=== PATIENT | female | born 1985 | race African-American/Black ===

== ENCOUNTER 2017-02-15 01:12 | Inpatient (IN) | payer OTHER ==
[~2017-02-15] VITALS: Ht 167.6 cm; Wt 122.5 kg
[~2017-02-15 01:12] MED LIST: ALBUTEROL0.09 MG/A1 INH; MOTRIN 600 MG600 MG PO; PRENA1 TRUE CO1 EACH PO; REGLAN10 MG PO; TESSALON PERLE100 MG PO; VICODIN5-300 PO; ZITHROMAX Z-PA250 M1 PO; ZOFRAN 4 MG TABL4 MG PO; ZOFRAN ODT4 MG SL
[2017-02-15 02:08] LABS: ABSOLUTE BASOPHIL COUNT 0 /CUMM (0.0-0.2); ABSOLUTE EOSINOPHIL COUNT 0 /CUMM (0.0-0.7); ABSOLUTE GRANULOCYTE CT 16.3 /CUMM (1.4-6.5); ABSOLUTE MONOCYTE COUNT 0.3 /CUMM (0.10-0.60); BASOPHIL % 0.1 % (0.0-2.0); EOSINOPHIL % 0 % (0-5); GRANULOCYTE % 92.9 % (42.2-75.2); HEMATOCRIT 37.8 % (37-47); MEAN CORPUSCULAR HGB CONC 32.9 G/DL (33.0-37.0); MEAN CORPUSCULAR VOLUME 82.1 FL (81.0-99.0); MEAN PLATELET VOLUME 9.1 FL (7.4-10.4); PLATELET COUNT 198 /CUMM (130-400); RBC DISTRIBUTION WIDTH 14.9 % (11.5-14.5); WHITE BLOOD CELL COUNT 17.6 /CUMM (4.8-10.8)
--- NOTE | 2017-02-15 11:00 | PN- Obstetrical ---
Subjective Subjective: HAD A DECLERATION Objective Last 24 Hrs of Vital Signs/I&O Intake & Output 02/15 1600 02/15 0800 02/15 0000 Intake Total Output Total Balance Patient 270 lb Weight Physical Exam: Vital signs stable Abdomen estimated weight 3700 g Obstetric Exam Dilation (cm): 5 Effacement (%): 90 Station: 0 Membranes: AROM Fluid: uPON ATTEMPT TO ARTIFICIALLY RUPTURE MEMBRANES NO MEMBRANES WERE NOTED MECONIUM WAS NOTED ON THE iupc PROBE Multiple Gestation? No Contractions: Every 4-5 minutes Assessment/Plan Assessment/Plan Assessment term DM cannabis use Plan AROM IUPCIFM
--- NOTE | 2017-02-15 12:12 | Operative Report ---
Operative/Inv Procedure Report Surgery Date: 02/15/17 Name of Procedure: Primary low flap transverse section via Pfannenstiel skin incision Pre-Operative Diagnosis: Term gestational diabetes and nonreassuring heart tracing bradycardia Post-Operative Diagnosis: Same meconium cord around neck 1 primary low flap transverse section via Pfannenstiel skin incision Estimated Blood Loss: 500 Surgeon/Bacteriology Research Assistant: Torie Randle M.D AND Karen Thomson Anesthesia: general endotracheal tube Operative/Procedure Note Note: Seasonal patient was taken to the operating room placed in supine position on after placement of Hernandez and there was a lack of heart patient was placed in dorsal lithotomy position the vagina was prepped of some fashion the abdomen was prepped under sterile fashion at this point the patient. After adequate induction general anesthesia via endotracheal tube kaleidoscope. The skin was cut to fit from symphysis pubis carried down to rectus fascia which was cut in curvilinear fashion in either direction using a knife the peritoneal cavity was entered bluntly at this point the level of L4 was placed in Khan incision the visceral peritoneum of the uterus was dissected bluntly after was nicked with a knife uterus was entered with the phaco live dissected bluntly as well as sharply the infant was delivered over the abdominal allergies. Was clamped and cut and the was handed to clinic lpn Dr. Mcgraw Delivery date necessitation placenta was delivered manually and noted to not be intact there was an accessory lobe and our membranes. Thickly stained with meconium a sharp curettage with the patient curette was performed patient tolerated this well hemostasis was apparent intravenous Pitocin as well as intramyometrial Pitocin was used to aid in uterine contractility patient tolerated that well at this point the uterus was hemostatic UTERUS was closed using running locking suture was imbricated with running locked suture of 0's well as a cold sweats for sounds were clear on her serosa was on Bovie coagulated hemostasis by the use is turned to the abdominal cavity irrigated Forms until Clear the Peritoneum Was Reapproximated Using 0 the Skin the Fascia Was Reapproximated in 2 Continuous Sutures of #1 Suture at the End of the Case the Skin Was Reapproximated with Dalton at the Bovie Coagulation Subcutaneous Tissue the Sterile Dressing Was Applied to the Skin Patient Tolerated That Well. At the Indications Patient Was Extubated and Awakened from Anesthesia and Transferred to Recovery Room Awake and Alert with Counts Correct with Clear Urine Findings: Viable male infant, neck 1 and meconium thick no fluid to speak of normal tubes and ovaries bilaterally a fibroid on the back posterior wall of the uterus +3 cm and a
[2017-02-16 06:51] LABS: ABSOLUTE BASOPHIL COUNT 0 /CUMM (0.0-0.2); ABSOLUTE EOSINOPHIL COUNT 0 /CUMM (0.0-0.7); ABSOLUTE MONOCYTE COUNT 0.7 /CUMM (0.10-0.60); BASOPHIL % 0.3 % (0.0-2.0); EOSINOPHIL % 0.2 % (0-5); GRANULOCYTE % 74.3 % (42.2-75.2); MEAN CORPUSCULAR HGB CONC 32.4 G/DL (33.0-37.0); MEAN CORPUSCULAR VOLUME 83.3 FL (81.0-99.0); MEAN PLATELET VOLUME 8.9 FL (7.4-10.4); PLATELET COUNT 149 /CUMM (130-400); RBC DISTRIBUTION WIDTH 14.6 % (11.5-14.5); RED BLOOD CELL CT 3.82 /CUMM (4.20-5.40); WHITE BLOOD CELL COUNT 10.8 /CUMM (4.8-10.8)
[2017-02-16 06:53] LABS: HEMATOCRIT 31.8 % (37-47)
--- NOTE | 2017-02-16 09:26 | PN- Post Delivery/GYN ---
Subjective Subjective: WANTS REG DIET Objective Last 24 Hrs of Vital Signs/I&O PER CHART Physical Exam: PLEASANT BF EATING ABD SOFT INCISIONCDI EXT -EDEMA Assessment/Plan Assessment/Plan ASSESS S/P C/S PLAN ADVANE DIET TO REG
[2017-02-16] MEDS ORDERED: IBUPROFEN800 M1 PO (16:16)
== END 2017-02-17 10:20 | DRG 540 ==
LOC: CBCO 01:12 → GNO 03:29
PROVIDERS: Specialist; ADMIT Obstetrics & Gynecology
PROC: 10D00Z1 Extraction of Products of Conception, Low, Open Approach (ICD-10-PCS; principal; 2017-02-15)
DX: O76 Abnormality in fetal heart rate and rhythm complicating labor and delivery (principal); O24.429 Gestational diabetes mellitus in childbirth, unspecified control; O69.81X0 Labor and delivery complicated by cord around neck, without compression, not applicable or unspecified; O34.13 Maternal care for benign tumor of corpus uteri, third trimester; D25.9 Leiomyoma of uterus, unspecified; O99.324 Drug use complicating childbirth; F12.90 Cannabis use, unspecified, uncomplicated; Z3A.39 39 weeks gestation of pregnancy; Z37.0 Single live birth
CPT/HCPCS: GNOS; 80307; 81001; 84112; 87086; J0690; J1170; J1650; J1885; J3475; J7042; J7120

== ENCOUNTER → 2017-09-19 | Day surgery (SDC) | payer OTHER ==
[~2017-09-19] VITALS: Ht 167.6 cm; Wt 127.0 kg
[~2017-09-19] MED LIST changes: +BACTRIM DS TAB1 EACH PO; +BUTALB-ACETAMI1 EACH PO; +CYCLOBENZAPRINE5 M2 PO; +IBUPROFEN800 M1 PO; +KEFLEX500 M1 PO; +PERCOCET 5-3251 EACH PO
--- NOTE | 2017-09-19 09:17 | Operative Report ---
Operative/Inv Procedure Report Surgery Date: 09/19/17 Name of Procedure: Open reduction internal fixation left comminuted distal radius fracture. Pre-Operative Diagnosis: Left comminuted distal radius fracture. Post-Operative Diagnosis: Same. Estimated Blood Loss: scant Surgeon/Certified Nurse: Jitendra ACKERMAN,Pal / JEAN-PIERRE Nassar Anesthesia: laryngeal mask airway, block Monitors: EKG/BP/O2 Saturation IV Fluids: Lactated Ringer's. Implants: Arthrex left narrow DVR 4 hole plate fixed with a combination of cortical and locking screws. Urine Output: None. Drains: None. Specimens: None. Microbiology: None. Tourniquet: 41 minutes@275 mmHg. Complications: None known. Condition: Stable. Operative Indication: The patient is a 32-year-old [id number] female who sustained a trip and fall landing on an outstretched left hand roughly 1 week ago. She was seen in the [facility] emergency room. X-rays revealed a comminuted distal radius fracture. The wrist was immobilized in a long-arm splint which she followed up in the office. After review of the x-rays including the comminuted nature of the fracture surgery was recommended as the best course of action. That being said, we did discuss the risks and benefits and expected outcomes of nonoperative management of the fracture with attempted closed reduction and immobilization in splint or cast versus that of operative intervention with formal ORIF of the distal radius fracture using a volar locking plate and screw system. All the patient's questions were answered at length and she did decide that she would like to move forward with surgical management of the fracture and surgical consent was obtained. Operative/Procedure Note Note: The patient underwent administration of a left-sided scalene block in the preop staging area. She was then brought to the operating room and placed on the operating table in the supine position. General anesthesia via LMA was induced by the anesthesiologist. A dose of IV antibiotics were given for infection prophylaxis. A well-padded tourniquet was applied to the proximal portion of the left arm. All bony prominences were well-padded. The sugar tong splint was removed and the wrist was manipulated with minimal force. The C-arm was brought in and we did confirm that the manipulation was able to achieve a reasonably acceptable provisional reduction of the fracture and mobilization of the fracture fragments. The left upper extremity was then prepped and draped in the usual sterile fashion. The patient's left volar distal forearm and wrist were marked out for a longitudinal volar approach to the distal radius. The skin incision was marked to overlie the underlying FCR tendon. The incision extended from just proximal to the volar skin flexion creases distally and then ran proximally a distance of about 6-7 cm more or less. After the skin was marked the extremity was exsanguinated and the pneumatic tourniquet was inflated to a pressure of 275 moment is mercury. The skin incision was created sharply with a scalpel. After that dissection was with blunt tipped scissors. Hemostasis was achieved with a combination of manual pressure and electrocautery. We identified the volar leaf of the FCR tendon sheath. This was divided longitudinally sharply with a scalpel in line with the skin incision. This allowed us to mobilize and translocate the FCR in an ulnar direction. We continued to dissect deeper through the dorsal leaf of the FCR tendon sheath. We next used fingertip blunt dissection extending down to the pronator quadratus. The pronator quadratus was taken down from its radial attachment site and then reflected in subperiosteal fashion in a radial to ulnar direction to expose the volar cortical bone of the distal radial shaft and metaphysis. Retractors were placed deeper for visualization. Additional retractors were placed off of the ulnar side of the distal radius in order to hold him out of the way while working on the distal radius itself. The volar fracture fragments were further manipulated into position into what grossly appeared to be an anatomic reduction of the volar side of the bone. We selected an Arthrex 4-hole left-sided narrow DVR plate and placed that down against the cortical bone on the volar side of the distal radial shaft and metaphysis. We pinned the plate provisionally with K wires and olive-tipped pin. We placed an appropriate length cortical screw in the midportion of the slotted screw hole in the longitudinal limb of the plate. We brought the C-arm in for imaging. Based upon this we slid the plate further distally and rotated the plate slightly to obtain better placement of the plate onto the distal radius. The pins were placed again and the screw was tightened down after the plate was adjusted. Examination of the fracture reduction along with plate fixation was now felt to be very acceptable in both AP and lateral projections of the wrist. We next began fixation of the distal end of the plate to the distal radial metaphysis using the targeting guide for locking screws and pegs. All of the distal radial plate screw holes were filled with a combination of full and partially threaded locking screws and smooth locking pins. This was done under fluoroscopic imaging to make sure that the length and trajectory and overall position of all screws and pegs were acceptable. We achieved further fixation of the longitudinal limb of the plate filling the 2 remaining screw holes with locking screws of appropriate length. Visualization of the wrist once again showed acceptable fracture reduction, alignment, and length to have been overall achieved. There was some dorsal comminution slightly proximal to the screws and pegs in the distal end of the plate which were not captured with the screws or pegs but which was felt to be acceptable and were left alone. Imaging did also confirm acceptable hardware position and fixation to have been achieved. Final AP and lateral fluoroscopic images were taken and saved for hard copy. Our attention was now directed towards closure. The wound was irrigated several times with saline. The tourniquet was deflated. Hemostasis was achieved with comminution of manual pressure and electrocautery. The pronator quadratus muscle belly was placed over the volar plate as best as possible but not formally repaired. The soft tissues were allowed to fall loosely in to normal approximation. The soft tissue repair consisted of placement of 3-0 Vicryl sutures placed in interrupted buried fashion to approximate the superficial subcutaneous tissue layer. The skin margins were then approximated using a 3-0 Prolene placed in running subcuticular fashion. The wound was washed and dried. Mastisol was applied over the skin about the repaired wound. Steri-Strips were then applied to augment the subcuticular skin repair. The wound was washed and dried again. Adaptic dressing was placed over the Steri-Strip line. Abundant gauze dressings were placed over and about the wrist and hand. This was overwrapped with Kerlix gauze wrap to hold the gauze dressings in place. We next wrapped the extremity from the distal palmar crease distally to the proximal forearm proximally with web roll cast padding. We next applied a 3 inch fiberglass splint across the wrist and allowed this to set up with the wrist in neutral position after having applied [place] bandages for compression and to hold the splint in place. The left upper extremity was placed into a Elvis pillow for elevation. The patient was awakened from anesthesia and then transferred to the stretcher and brought to the recovery room in stable condition having tolerated the procedure well. Findings: 1) Acceptable fracture reduction, alignment, and length achieved. 2) Acceptable hardware position and fixation achieved. Discharge Disposition: PACU
--- NOTE | 2017-09-19 14:38 | RADIOLOGY REPORT ---
EXAMINATION: XR WRIST, LEFT CLINICAL INFORMATION: Intraoperative images of the left wrist. COMPARISON: Plain film images of the left wrist dated 09/11/2017. TECHNIQUE: Intraoperative images, PA and lateral views of the left wrist. FINDINGS: Orthopedic hardware extends along the palmar aspect of the distal radius, with an orthopedic wire present in the distal aspect of the distal radius as well as multiple orthopedic screws. The distal radius fracture appearance is not significantly changed compared to the previous plain film study of 09/11/2015.. IMPRESSION: Intraoperative images for internal fixation of the distal left radius fracture.
== END ==
LOC: STS 01:09
DX: S52.532A Colles' fracture of left radius, initial encounter for closed fracture (principal); W01.0XXA Fall on same level from slipping, tripping and stumbling without subsequent striking against object, initial encounter; F17.200 Nicotine dependence, unspecified, uncomplicated; K21.9 Gastro-esophageal reflux disease without esophagitis
CPT/HCPCS: 73100-LT; 81025; C1713; J0131; J0690; J2250

== ENCOUNTER 2017-10-10 18:15 | Inpatient (IN) | payer OTHER ==
[~2017-10-10] VITALS: Ht 167.6 cm; Wt 115.0 kg
[2017-10-10 18:49] LABS: ABSOLUTE BASOPHIL COUNT 0 /CUMM (0.0-0.2); ABSOLUTE EOSINOPHIL COUNT 0 /CUMM (0.0-0.7); ABSOLUTE GRANULOCYTE CT 10.8 /CUMM (1.4-6.5); ABSOLUTE LYMPH COUNT 1.7 /CUMM (1.2-3.4); ABSOLUTE MONOCYTE COUNT 0.6 /CUMM (0.10-0.60); BASOPHIL % 0.2 % (0.0-2.0); EOSINOPHIL % 0.3 % (0-5); GRANULOCYTE % 81.7 % (42.2-75.2); HEMATOCRIT 42.8 % (37-47); MEAN CORPUSCULAR HGB 24.4 PG (27.0-31.0); MEAN CORPUSCULAR HGB CONC 31.9 G/DL (33.0-37.0); MEAN CORPUSCULAR VOLUME 76.3 FL (81.0-99.0); MEAN PLATELET VOLUME 10.1 FL (7.4-10.4); PLATELET COUNT 301 /CUMM (130-400); RBC DISTRIBUTION WIDTH 17.1 % (11.5-14.5); RED BLOOD CELL CT 5.61 /CUMM (4.20-5.40); WHITE BLOOD CELL COUNT 13.3 /CUMM (4.8-10.8)
--- NOTE | 2017-10-10 19:31 | ED GI/GU/ABDOMINAL COMPLAINT ---
History of Present Illness General Chief Complaint: General Adult Stated Complaint: PT IS VOMITING ALL DAYS Source: patient, old records Exam Limitations: no limitations Allergies Coded Allergies: No Known Allergies (09/15/17) Reconcile Medications Ibuprofen 800 MG TABLET 1 TAB PO 4XDAILY PRN PAIN/INFLAMMATION (Reported) Oxycodone HCl/Acetaminophen (Percocet 5-325 MG Tablet) 5 MG-325 MG TABLET 2 TAB PO Q6-8H PRN PAIN (Reported) Triage Note: PER PT CANT KEEP NOTHING DOWN ALL DAY. NO DIARRHEA SEP 19 LMP DENIES CHANCE OF Triage Nurses Notes Reviewed? yes LMP (ages 10-50): august 2017 ? n Is pt currently ? No Onset: Abrupt Duration: day(s):, constant, getting worse Timing: recent history Quality/Severity: aching, cramping Severity Numbers: 5 Location: generalized abdomen Radiation: no radiation Activities at Onset: none Prior Abdominal Problems: none No Modifying Factors: none Associated Symptoms: denies HPI: 32-year-old female presents to ER for evaluation with multiple day history of nausea vomiting generalized body aches malaise. She denies diarrhea sick contacts fever chills chest pain shortness of breath. She does report to urinary frequency no dysuria or urgency. No modifying factors or associated symptoms otherwise. Patient states she was diagnosed with gestational diabetes however gave by 8 months ago. She denies any other medical problems no history of abdominal surgeries in the past. (Santosh PARSONS,Foster) Vital Signs & Intake/Output Vital Signs & Intake/Output Vital Signs Date Time Temp Pulse Resp B/P B/P Pulse O2 O2 Flow FiO2 Mean Ox Delivery Rate 10/10 2208 97.6 97 20 137/71 100 Room Air 10/10 2023 98.8 123 20 157/104 99 Room Air 10/10 2020 98.4 130 135/97 (Alvin Marino DO) Past History Travel History Traveled to [place] past 21 day No Medical History Any Pertinent Medical History? 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 No (Foster Case) Review of Systems Review of Systems Constitutional: Reports: see HPI. Comments Review of systems: See HPI, All other systems negative. Constitutional, no chills no fever, no malaise HEENT: no sore throat no congestion, no ear pain Cardiovascular: No chest pain , no palpitation Skin: no rashes, no change in skin Respiratory: No dyspnea no cough GI: see hpi : No dysuria No hematuria, no frequency Muscle skeletal: No joint pain, no back pain Neurologic: , no headache Heme/endocrine: No bruising Immunology: No lymphadenopathy (Foster Case) Physical Exam Physical Exam General Appearance: well developed/nourished, no apparent distress Gastrointestinal: soft, non-tender Comments: Well-developed well-nourished person in no acute distress HEENT: Normal EENT exam; PERRL, EOMI, HEAD is atraumatic. moist mucous membranes. Neck: Supple, normal range of motion Back: Nontender, no CVA tenderness. Full range of motion Cardiovascular: Regular rate and rhythms no murmurs rub Respiratory: Chest nontender.There were no bony deformities, no asymmetry. No respiratory distress. Patient speaking in full complete sentences. Breath sounds clear to auscultation bilaterally: NO W/R/R Abdomen: Soft, nontender nondistended, no appreciable organomegaly. Normal bowel sounds. No rebound/guarding, Extremity: No edema, full range of motion of extremities Neuro: Alert oriented x3, motor sensory normal, . There were no obvious focal neurologic abnormalities. Skin: No appreciable rash on exposed skin, skin is warm and dry. Psych: Mood and affect is normal, memory and judgment is normal. Core Measures ACS in differential dx? No Sepsis Present: No Sepsis Focused Exam Completed? No (Foster Case) Progress Differential Diagnosis: appendicitis, biliary colic, bowel obstruction, colon cancer, cholecystitis, diverticulitis, ectopic , gastritis, hepatitis, inflamm bowel dis, intrauterine , kidney stone, peptic ulcer, PUD/GERD, perforated viscous, SBO, dka, hhs, acute kidney injury, electrolyte abnormality Plan of Care: Orders Procedure Date/time Status Nothing by Mouth 10/11 B Active ICU LAB BUNDLE 10/11 0600 Active Lab Add-on Test 10/11 0500 Active TROPONIN LEVEL 10/11 0500 Active ICU LAB BUNDLE 10/11 0500 Active CBC WITHOUT DIFFERENTIAL 10/11 0500 Active EKG 10/11 0500 Active GLUCOSE 10/11 0200 Active BASIC ELECTROLYTES PLUS BUN&CR 10/11 0200 Active VRE ACTIVE SURVIELLANCE 10/11 0100 Active ACTIVE SURVEILLANCE NARES 10/11 0100 Active Vital Signs 10/11 0012 Active Skin Integrity Protocol 10/11 0012 Active Precautions 10/11 0012 Active Isolation 10/11 0012 Active Intake & Output 10/11 0012 Active Lab Add-on Test 10/11 UNK Active Code Status 10/10 2315 Active Lab Add-on Test 10/10 2312 Active MAGNESIUM 10/10 2234 Complete BASIC ELECTROLYTES PLUS BUN&CR 10/10 223 Complete FingerStick- Glucose 10/10 2208 Active Patient Data 10/10 2201 Active Admit to inpatient 10/10 214 Active Add-on Test (ER Only) 10/10 2026 Active URINE DRUGS OF ABUSE 10/10 194 Complete URINALYSIS 10/10 1930 Complete Add-on Test (ER Only) 10/10 1926 Active Add-on Test (ER Only) 10/10 1925 Active EKG 10/10 1925 Active TROPONIN LEVEL 10/10 1830 Active SERUM OSMOLALITY 10/10 1830 Active GLYCOSYLATED HGB 10/10 1830 Active ACETONE 10/10 1830 Active RAPID VIRAL INFLUENZA A 10/10 1822 Complete LIPASE 10/10 1822 Active HUMAN BETA HCG SCREEN 10/10 1822 Active COMPREHENSIVE METABOLIC PANEL 10/10 1822 Active CBC WITHOUT DIFFERENTIAL 10/10 1822 Complete House Staff 10/10 UNK Active Current Medications Sig/Kevin Start time Last Medication Dose Stop Time Status Admin Enoxaparin Sodium 40 MG DAILY 10/11 1000 UNVr (Lovenox) Potassium Chloride 40 MEQ Q8H 10/11 0100 UNVr (KCl 40MEQ in NS 1000ML) Sodium Chloride 1,000 ML (Normal Saline 0.9%) Insulin Human Regular 100 UNIT Q24H 10/10 2044 AC (Novolin R (Insulin Drip)) Sodium Chloride 100 ML (Normal Saline 0.9%) Laboratory Tests 10/10/17 2340: Anion Gap 19 H, Estimated GFR > 60, BUN/Creatinine Ratio 20.0, Magnesium 1.6 10/10/17 1941: Urine Opiates Screen < 100.00, Methadone Screen < 40, Barbiturate Screen < 60, Ur Phencyclidine Scrn < 6.00, Amphetamines Screen < 100, U Benzodiazepines Scrn < 85, Urine Cocaine Screen < 50, Urine Cannabis Screen > 80.00 H, Urine Color YEL, Urine Clarity CLEAR, Urine pH 6.0, Ur Specific [place] 1.015, Urine Protein NEG, Urine Ketones >=80, Urine Nitrite NEG, Urine Bilirubin NEG@ICTO, Urine Urobilinogen 0.2, Ur Leukocyte Esterase NEG, Ur Microscopic SEDIMENT EXAMINED, Urine RBC 3-5, Urine WBC 5-10 H, Ur Epithelial Cells MOD H, Urine Bacteria MOD H, Urine Mucus FEW, Urine Hemoglobin SMALL H, Urine Glucose >=1000 H 10/10/171924: Acetone Level Cancelled 10/10/171829: Anion Gap 21 H, Estimated GFR > 60, BUN/Creatinine Ratio 17.1, Glucose 615 *H, Hemoglobin A1c Pending, Serum Osmolality 310 H, Calcium 9.8, Total Bilirubin 0.5, AST 9 L, ALT 11, Alkaline Phosphatase 150 H, Troponin I < 0.01, Total Protein 8.0, Albumin 4.3, Globulin 3.7, Albumin/Globulin Ratio 1.2, Lipase 124, Total Beta HCG NEGATIVE, CBC w Diff NO MAN DIFF REQ, RBC 5.61 H, MCV 76.3 L, MCH 24.4 L, MCHC 31.9 L, RDW 17.1 H, MPV 10.1, Gran % 81.7 H, Lymphocytes % 12.9 L, Monocytes % 4.9, Eosinophils % 0.3, Basophils % 0.2, Absolute Granulocytes 10.8 H, Absolute Lymphocytes 1.7, Absolute Monocytes 0.6, Absolute Eosinophils 0, Absolute Basophils 0, Acetone Level POSITIVE AT 1:8 DIL Microbiology 10/11 99 UPPER RESP: Surveillance Culture - COLB 10/11 99 GI: Surveillance Culture - COLB 10/10 1834 NASOPHARYN: Influenza Virus A & B Rapid Smear - COMP Labs ordered from triage I discussed with patient all her labs she states she does have a history of gestational diabetes she gave 8 months ago there is no abdominal pain no tenderness on exam. I discussed with the patient at length all of her lab results resting in no apparent distress she's had no episodes of vomiting while in room 1. Patient seen by Dr. Marino agrees with plan insulin drip ordered Case discussed with Dr. sandhu will admit Initial ED EKG: stach at 110, nonspecific st seg chagnes normal axis Prior EKG: unchanged (Foster Case) Departure Departure Time of Disposition: 2120 Disposition: STILL A PATIENT Condition: Stable Clinical Impression Primary Impression: DKA (diabetic ketoacidoses) Referrals: Patient Has No Primary Care Dr (PCP/Family) Departure Forms: Customer Survey General Discharge Information Admission Note Spoke With: Sharad Sandhu MD Documentation of Exam: Documentation of any treatments & extenuating circumstances including Concerns Regarding Discharge (functional status, medication knowledge or non-compliance, living conditions, etc.) that warrant an admission rather than observation: Endocrine consult IV fluids and insulin drip premature discharge would BE medically harmful (Foster Case) Admission Note Documentation of Exam: Documentation of any treatments & extenuating circumstances including Concerns Regarding Discharge (functional status, medication knowledge or non-compliance, living conditions, etc.) that warrant an admission rather than observation: I have seen and personally examined the patient and I agree with the PAs evaluation. The patient presents with vomiting. She is in diabetic ketoacidosis. She is being admitted to the ICU for further care. (Alvin Marino DO) Critical Care Note Critical Care Note Critical Care Time: 30-74 min (Foster Case)
--- NOTE | 2017-10-10 23:13 | Admission Certification ---
Admission Certification Certification Statement - As attending physician, I certify that at the time of - admission, based on clinical presentation, severity of - symptoms, need for further diagnostic testing and - therapeutic interventions, and risk of adverse outcomes - without in-hospital treatment, in my clinical assessment, - this patient requires an acute hospital stay for a minimum - of two nights or longer. I have also considered psychsocial - factors such as support system, advanced age, financial - issues, cognitive issues, and failed out-patient treatments, - past re-admission history, safety of patient, and lack of - compliance as applicable. Specific rationale supporting this admission is: Diabetic ketoacidosis, new diagnosis of diabetes mellitus
--- NOTE | 2017-10-10 23:18 | History & Physical ---
Keron Lopez 10/10/17 2317: General Information and HPI MD Statement: I have seen and personally examined RE THAPA and documented this H&P. The patient is a 32 year old F who presented with a patient stated chief complaint of nausea vomiting Source of Information: patient Exam Limitations: no limitations History of Present Illness: 32-year-old woman past medical history significant for gestational of diabetes mellitus not treated with insulin, history of asthma and GERD, strong history of insulin-dependent diabetes, recent fracture of left hand status post surgery 3 weeks ago comes in for evaluation of nausea /vomiting. She gave about 8 months ago. Lab work showed borderline values however she did not follow-up. Since the past few weeks she has been noticing increased urination and increased thirst. Since the past 2 days she's been having nausea and vomiting with associated decreased appetite. Denies diarrhea, sick contacts,fever, chills ,chest pain,shortness of breath. 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 Denies: chills, diaphoresis, fever, malaise, unexplained weight loss. Cardiovascular: Denies: chest pain, edema, orthopena, palpitations, peripheral edema, syncope. Respiratory: Denies: no symptoms, see HPI, cough, hemoptysis, orthopnea, short of breath, sputum production, stridor, wheezing. GI: Denies: abdominal pain, bloating, constipation, diarrhea, distention, bowel incontinence, melena, nausea, bloody stool, changes in stool, vomiting, steatorrhea. Genitourinary: Denies: discharge, dysuria, frequency, hematuria, hesitation, nocturia, pain, urgency. Exam & Diagnostic Data Last 24 Hrs of Vital Signs/I&O Vital Signs Date Time Temp Pulse Resp B/P B/P Pulse O2 O2 Flow FiO2 Mean Ox Delivery Rate 10/10 2208 97.6 97 20 137/71 100 Room Air 10/10 2023 98.8 123 20 157/104 99 Room Air 10/10 2020 98.4 130 135/97 Intake & Output 10/11 0800 10/11 0000 10/10 1600 Intake Total 2000 Output Total Balance 2000 Intake, IV 2000 Physical Exam General Appearance Alert, Oriented X3, Cooperative, No Acute Distress Skin No Rashes, No Breakdown, No Significant Lesion HEENT Atraumatic, PERRLA, EOMI, dry mucous membranes Neck No thryomegaly, palpable left cervical lymphnodes Cardiovascular Regular Rate, Normal S1, Normal S2 Lungs Clear to Auscultation, Normal Air Movement Abdomen Normal Bowel Sounds, Soft, No Tenderness, No Masses, distended Extremities No Edema, Normal Pulses Diagnostic Data EKG Results NSR , q waves in lead II/ III Assessment/Plan Assessment: 32-year-old woman past medical history significant for gestational of diabetes mellitus not treated with insulin, history of asthma and GERD, strong history of insulin-dependent diabetes, recent fracture of left hand status post surgery 3 weeks ago comes in for evaluation of nausea /vomiting. Vitals on admission temperature 98.4, heart rate 123, blood pressure 157/104 Labs WBC 13.3, hemoglobin 13.7, platelet 21, sodium 1:30, potassium 4.3, chloride 97, bicarbonate 12, BUN 12, creatinine 0.7, serum glucose 615, anion gap 21, ALP 150, UA significant for urine glucose of more than thousand, hematuria Assessment/plan: High gap metabolic acidosis secondary to DKA, likely atypical presentation of Type 2 diabetes commonly seen in obese americans admitt to ICU for insulin drip, fingersticks every hour and BEP every 4 hours normal saline at 100 mL of potassium, spoke to handbag parts cutter will maintain fingersticks between 100-200. Insulin drip till bicarbonate greater than 18 and anion gap closes. Will switch fluids from normal saline's to D5 half-normal once fingersticks less than 250 Follow-up hemoglobin A1c, lipid panel, JARROD and C-peptide to r/o type 1 DVT prophylaxis with subcutaneous Lovenox Currently nothing by mouth advance diet once nausea subsides Full code As Ranked By This Provider Problem List: 1. DKA (diabetic ketoacidoses) Core Measures/Misc (05/07) Acute Coronary Syndrome ACS Diagnosis: No Congestive Heart Failure Congestive Heart Failure Diagnosis No Cerebrovascular Accident CVA/TIA Diagnosis: No VTE (View Protocol) VTE Risk Factors Obesity No Mechanical VTE Prophylaxis d/t Other (pharm ppx) No VTE Pharm Prophylaxis d/t NA PharmProphylax ordered Sepsis (View protocol) Sepsis Present: No Zackary ACKERMAN, [facility] 10/10/17 2320: Attending MD Review Statement Attending Statement Attending MD Statement: examined this patient, discuss w/resident/PA/ABORIGINAL COMMUNITY COUNCIL MEMBER, agreed w/resident/PA/ABORIGINAL COMMUNITY COUNCIL MEMBER, reviewed images, amended to note Attending Assessment/Plan: 32 yo F with h/o asthma, GERD, gestational diabetes (January 2017) with reported borderline sugars post delivery but lost to follow-up, also has strong family h/ o diabetes in parents and siblings, is here for evaluation of intractable nausea , vomiting and diffuse abdominal pain that started this morning. She was unable to keep anything down. Patient reports poor appetite for past few days associated with increased thirst and urinary frequency. No dysuria, fever/ chills, chest pain, dyspnea or palpitations. No sick contacts. She is a current everyday smoker and also uses marijuana twice daily. Vitals stable other than mild tachycardia. Exam: AAO, very dry mucous membranes, palpable right cervical LN (single), no pharyngeal erythema, no JVD, Chest b/l clear, Heart S1S2 regular, Abd soft, NT, LE: no edema. Patient was very tearful when explained about her diagnosis of diabetes. Labs: WBC 13.3, Na 130, bicarb 12, AG 21, BUN 12, creat 0.7, glucose 615, S. Osm 310, Alk phos 150, trop neg, lipase 124. Beta HCG neg. UA clear with glucose >1000. Utox positive for cannabis. Acetone positive. EKG: sinus tachycardia, Qtc 468, TWI in lead III and inferior Q waves (old). Assessment and plan: 1. Diabetic ketoacidosis 2. Newly diagnosed diabetes mellitus (Type 1 vs Type 2) 3. High AG metabolic acidosis 4. Pseudohyponatremia (corrected sodium is 138) 5. Leukocytosis likely reactive 6. History of asthma - Admit to ICU - Accucheks Q1 hourly - Patient received 2 L NS, 10 units insulin and started on insulin drip. - Titrate insulin drip based on accucheks to keep sugars between 100-200 - Check BEP every 4 hours - IV normal saline at 150/hour - Endo consult - Once accuchek < 250, change fluids to D5-1/2 NS with 40 KCL @ 150/hr - Transition to subcut insulin once AG closes, bicarb >18 and patient able to tolerate a diet - NPO for now - Check lactic acid - Would ideally check ABG, however this was not done in ER, hold off for now since acidosis is improving. - Repeat EKG and troponin in AM - Check HbA1c, JARROD and C-peptide - CRCU consult in AM - Obtain CXR to rule out pneumonia, UA is negative for UTI. - If febrile, panculture and consider empiric abx coverage. - TRC nebs - Pain management with tylenol and percocet - Smoking cessation counseling, nicotine patch - GI ppx IV PPI DVT ppx Lovenox. Full code. She is only on albuterol and protonix at home, she was prescribed percocet for pain but does not use it much. TTS > 45 mins
[2017-10-11 01:00] VITALS: BP 140/78
--- NOTE | 2017-10-11 07:24 | Cons- CRCU ---
Herminio ACKERMAN,[facility] 10/11/17 0724: General Information and HPI History of Present Illness: The patient is a 32-year-old female with past medical history of asthma, GERD, gestational hypertension diabetes in January 2017 with borderline blood sugars postdelivery, never followed up with doctor and recent fracture of left hand status post surgery 3 weeks She has strong family history of diabetes in her periods and siblings. She presented to [facility] on 10/10 with presenting complaint of nausea vomiting and diffuse abdominal pain. She reports poor appetite increased thirst and increased urinary frequency. Denies fevers,chills, pain/burning during urination, cough or sputum production. No sick contacts. Denies any chest pain dyspnea or palpitation. On presentation patient was found to have mild tachycardia with dry mucous membranes palpable right cervical lymph node Her labs were positive for leukocytosis, anion gap of 19, sodium 1:30, bicarbonate 12 glucose 615, serum osmolality 310 alkaline phosphatase 15 lipase 124. She was admitted to ICU for management of diabetic ketoacidosis. Allergies/Medications Allergies: Coded Allergies: No Known Allergies (09/15/17) Home Med List: Ibuprofen 800 MG TABLET 1 TAB PO 4XDAILY PRN PAIN/INFLAMMATION (Reported) Oxycodone HCl/Acetaminophen (Percocet 5-325 MG Tablet) 5 MG-325 MG TABLET 2 TAB PO Q6-8H PRN PAIN (Reported) Review of Systems Review of Systems Constitutional: Reports: see HPI. 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) Exam & Diagnostic Data Last 24 Hrs of Vital Signs/I&O Vital Signs Date Time Temp Pulse Resp B/P B/P Pulse O2 O2 Flow FiO2 Mean Ox Delivery Rate 10/11 0400 99 Room Air 10/11 0100 98 Room Air 10/11 0100 97.3 90 16 140/78 98 Room Air 10/10 2208 97.6 97 20 137/71 100 Room Air 10/10 2023 98.8 123 20 157/104 99 Room Air 10/10 2020 98.4 130 135/97 Intake & Output 10/11 1600 10/11 0800 10/11 0000 Intake Total 3085 Output Total 125 Balance 2960 Intake, IV 2785 Intake, Oral 300 Number 0 Bowel Movements Output, Urine 125 Patient 254 lb Weight Weight Bed scale Measurement Method Physical Exam General Appearance: well developed/nourished, no apparent distress, alert, awake Head: atraumatic Neck: normal inspection Respiratory: normal breath sounds Cardiovascular: s1 s2 Gastrointestinal: normal bowel sounds, soft, non-tender, no organomegaly Extremities: no edema Last 48 Hrs of Labs/Burke: Laboratory Tests 10/11/17 0800: CBC w Diff Pending, WBC Pending, RBC Pending, Hgb Pending, Hct Pending, MCV Pending, MCH Pending, MCHC Pending, RDW Pending, Plt Count Pending, MPV Pending 10/11/17 0600: Sodium Cancelled, Potassium Cancelled, Chloride Cancelled, Carbon Dioxide Cancelled, Anion Gap Cancelled, BUN Cancelled, Creatinine Cancelled, Glucose Cancelled, Calcium Cancelled, Phosphorus Cancelled, Magnesium Cancelled, Total Bilirubin Cancelled, AST Cancelled, ALT Cancelled, Albumin Cancelled 10/11/17 0500: Anion Gap 12, Estimated GFR > 60, Glucose 300 H, Calcium 8.7, Phosphorus 3.4, Magnesium 1.5 L, Total Bilirubin 0.6, AST 12 L, ALT 16, Troponin I 0.02, Albumin 3.2 L, Triglycerides 326 H, Cholesterol 229 H, LDL Cholesterol, Calc 136 H, HDL Cholesterol 28 L, Cholesterol/HDL Ratio 8 H 10/11/17 0200: Anion Gap 15, Estimated GFR > 60, BUN/Creatinine Ratio 18.0, Glucose 248 H 10/10/17 2340: Anion Gap 19 H, Estimated GFR > 60, BUN/Creatinine Ratio 20.0, Magnesium 1.6 10/10/17 1941: Urine Opiates Screen < 100.00, Methadone Screen < 40, Barbiturate Screen < 60, Ur Phencyclidine Scrn < 6.00, Amphetamines Screen < 100, U Benzodiazepines Scrn < 85, Urine Cocaine Screen < 50, Urine Cannabis Screen > 80.00 H, Urine Color YEL, Urine Clarity CLEAR, Urine pH 6.0, Ur Specific Sawyer 1.015, Urine Protein NEG, Urine Ketones >=80, Urine Nitrite NEG, Urine Bilirubin NEG@ICTO, Urine Urobilinogen 0.2, Ur Leukocyte Esterase NEG, Ur Microscopic SEDIMENT EXAMINED, Urine RBC 3-5, Urine WBC 5-10 H, Ur Epithelial Cells MOD H, Urine Bacteria MOD H, Urine Mucus FEW, Urine Hemoglobin SMALL H, Urine Glucose >=1000 H 10/10/171924: Acetone Level Cancelled 10/10/171829: Anion Gap 21 H, Estimated GFR > 60, BUN/Creatinine Ratio 17.1, Glucose 615 *H, Hemoglobin A1c 16.2 H, Serum Osmolality 310 H, Calcium 9.8, Total Bilirubin 0.5, AST 9 L, ALT 11, Alkaline Phosphatase 150 H, Troponin I < 0.01, Total Protein 8.0, Albumin 4.3, Globulin 3.7, Albumin/Globulin Ratio 1.2, Lipase 124, Total Beta HCG NEGATIVE, CBC w Diff NO MAN DIFF REQ, RBC 5.61 H, MCV 76.3 L, MCH 24.4 L, MCHC 31.9 L, RDW 17.1 H, MPV 10.1, Gran % 81.7 H, Lymphocytes % 12.9 L, Monocytes % 4.9, Eosinophils % 0.3, Basophils % 0.2, Absolute Granulocytes 10.8 H, Absolute Lymphocytes 1.7, Absolute Monocytes 0.6, Absolute Eosinophils 0, Absolute Basophils 0, Acetone Level POSITIVE AT 1:8 DIL Microbiology 10/10 1834 NASOPHARYN: Influenza Virus A & B Rapid Smear - COMP Assessment/Plan CRCU Impression/Plan: The patient is a 32-year-old female with past medical history of asthma, GERD, gestational hypertension diabetes in January 2017 with borderline blood sugars postdelivery, never followed up with doctor and recent fracture of left hand status post surgery 3 weeks. She presented to [facility] on 10/10 with presenting complaint of nausea vomiting and diffuse abdominal pain. She reports poor appetite increased thirst and increased urinary frequency. The patient is being evaluated and treated for following conditions #Diabetic ketoacidosis The patient is 32-year-old female with history of gestational diabetes, borderline blood sugar postdelivery and strong family history of diabetes mellitus in parents and siblings. Nausea vomiting and abdominal pain. She presented with picture of diabetic ketoacidosis with Serum glucose 615, serum osmolality 310 anion gap of 21 bicarbonate 12 Sodium 130. She appears to have ketosis prone type 2 diabetes mellitus. -Overnight patient was started on insulin drip and IVF -Currently on insulin drip at 5 units per hour. -Currently on normal saline with 40 KCl at the rate of 100 mL per hour -We are going to continue with the insulin drip for now and once patient's blood sugar hits below 200 we will transition to a sliding scale. -We will begin her on Levemir 20 twice a day -Follow-up HbA1c, C-peptide and JARROD -Endocrinology on board #High anion gap metabolic acidosis Secondary to diabetic ketoacidosis. Anion gap has closed now. -Continue to monitor #Pseudohyponatremia in setting of hypoglycemia Presented with sodium of 130 corrected value of sodium is 138. resolved now -Continue to monitor #Leukocytosis likely reactive Patient remains afebrile with no obvious source of infection here is negative for UTI chest x-ray is negative for pneumonia. -Monitor fever and WBC curve -Monitor off antibiotics -If patient spikes fever we will consider panculture and empirical antibiotic coverage. #History of GERD Protonix #History of smoking Smoking cessation counseling nicotine patch #Historyof asthma TRC #NPO for now will begin patient on diet when transition to subcutaneous insulin/ DVT prophylaxis with Lovenox/FC Problem List: 1. DKA (diabetic ketoacidoses) Consult Acknowledgment - Thank you for your consult request. Arthur ACKERMAN,[facility] 10/11/17 0825: General Information and HPI Consulting Request Date of Consult: 10/11/17 Requested By: Dr. Raymundo Reason for Consult: DKA Source of Information: patient, old records Exam Limitations: no limitations Allergies/Medications Current Medications: Current Medications Sig/Kevin Start time Last Medication Dose Route Stop Time Status Admin Enoxaparin Sodium 40 MG DAILY 10/11 1000 AC SC Insulin Human Regular 100 UNIT Q24H 10/10 2044 AC Sodium Chloride 100 ML IV Insulin Human Regular 10 UNITS ONCE ONE 10/10 1944 DC 10/10 IV 10/10 1945 2018 Magnesium Sulfate 1 GM Q2H 10/11 0730 AC Dextrose/Water 100 ML IV 10/11 1129 Ondansetron HCl 0 .STK-MED ONE 10/10 2026 DC .ROUTE Ondansetron HCl 4 MG ONCE ONE 10/10 1944 DC 10/10 IV 10/10 Ondansetron HCl 4 MG ONCE ONE 10/10 1844 DC 10/10 PO 10/10 Ondansetron HCl 0 .STK-MED ONE 10/10 184 DC PO Oxycodone/ 1 TAB Q6P PRN 10/11 0400 AC Acetaminophen PO Pantoprazole Sodium 40 MG DAILY 10/11 1000 AC IV Potassium Chloride 40 MEQ Q10H 10/11 0730 AC 10/11 Sodium Chloride 1,000 ML IV 0720 Potassium Chloride 40 MEQ Q10H 10/11 0330 DC 10/11 Dextrose/Sodium 1,000 ML IV 0332 Chloride Potassium Chloride 40 MEQ 100 MLS/HR 10/11 0315 CAN IV Potassium Chloride 40 MEQ Q8H 10/11 0100 DC Sodium Chloride 1,000 ML IV Sodium Chloride 1,000 ML Q10H 10/10 2245 DC IV Sodium Chloride 1,000 ML BOLUS ONE 10/10 1929 DC 10/10 IV 10/10 Sodium Chloride 1,000 ML BOLUS ONE 10/10 193 DC 10/10 IV 10/10 Exam & Diagnostic Data Last 24 Hrs of Vital Signs/I&O Vital Signs Date Time Temp Pulse Resp B/P B/P Pulse O2 O2 Flow FiO2 Mean Ox Delivery Rate 10/11 0400 99 Room Air 10/11 0100 98 Room Air 10/11 010 97.3 90 16 140/78 98 Room Air 10/10 2208 97.6 97 20 137/71 100 Room Air 10/10 2023 98.8 123 20 157/104 99 Room Air 10/10 2020 98.4 130 135/97 Intake & Output 10/11 1600 10/11 0800 10/11 0000 Intake Total 3085 Output Total 125 Balance 2960 Intake, IV 2785 Intake, Oral 300 Number 0 Bowel Movements Output, Urine 125 Patient 254 lb Weight Weight Bed scale Measurement Method Assessment/Plan CRCU Other Findings/Comments: I have personally seen and examined the patient and agree with the resident's assessment and plan as detailed above. I personally discussed the case with endocrinology. Dr. coyle will be evaluating the patient this morning and making recommendations for an insulin regimen and IV fluids. We'll advance diet when able. We will continue supporting the patient in the critical care unit until improved. We'll follow-up later today as well. Consult Acknowledgment - Thank you for your consult request.
[2017-10-11 08:00] VITALS: BP 130/70
[2017-10-11 08:39] LABS: ABSOLUTE BASOPHIL COUNT 0 /CUMM (0.0-0.2); ABSOLUTE EOSINOPHIL COUNT 0.1 /CUMM (0.0-0.7); ABSOLUTE GRANULOCYTE CT 6.9 /CUMM (1.4-6.5); WHITE BLOOD CELL COUNT 9.2 /CUMM (4.8-10.8)
[2017-10-11 08:47] LABS: ABSOLUTE LYMPH COUNT 1.6 /CUMM (1.2-3.4); ABSOLUTE MONOCYTE COUNT 0.7 /CUMM (0.10-0.60); BASOPHIL % 0.5 % (0.0-2.0); EOSINOPHIL % 0.9 % (0-5); GRANULOCYTE % 74.3 % (42.2-75.2); MEAN CORPUSCULAR HGB 24.5 PG (27.0-31.0); MEAN CORPUSCULAR HGB CONC 32.5 G/DL (33.0-37.0); MEAN CORPUSCULAR VOLUME 75.6 FL (81.0-99.0); MEAN PLATELET VOLUME 9.7 FL (7.4-10.4); PLATELET COUNT 218 /CUMM (130-400); RBC DISTRIBUTION WIDTH 16.6 % (11.5-14.5); RED BLOOD CELL CT 4.88 /CUMM (4.20-5.40)
[2017-10-11 08:50] LABS: HEMATOCRIT 36.9 % (37-47)
--- NOTE | 2017-10-11 09:38 | Cons- Endocrinology ---
General Information and HPI Consulting Request Date of Consult: 10/11/17 Requested By: ICU Reason for Consult: evaluation and management of DKA Source of Information: patient Exam Limitations: no limitations History of Present Illness: 32-year-old woman with past medical history significant for gestational of diabetes mellitus asthma and GERD, recent fracture of left hand status post surgery 3 weeks ago presented with nausea /vomiting. But she was having polydipsia and polyuria for several weeks. She has had a strong family history of diabetes. In ER, blood work showed glucose 615, bicarb 12, AG 21 and osmolality 310 with positive ketone at 1:8 dilution. She was treated with iv insulin drip and IVF overnight. Currently she is on NS with 40 kcl at 100 ml/hour and insulin drip at 5 units per hour. Her last FSG was 270. Allergies/Medications Allergies: Coded Allergies: No Known Allergies (09/15/17) Home Med List: Ibuprofen 800 MG TABLET 1 TAB PO 4XDAILY PRN PAIN/INFLAMMATION (Reported) Oxycodone HCl/Acetaminophen (Percocet 5-325 MG Tablet) 5 MG-325 MG TABLET 2 TAB PO Q6-8H PRN PAIN (Reported) Past History Travel History Traveled to [place] past 21 day No Medical History Blood Transfusion Hx: No Neurological: NONE EENT: NONE Cardiovascular: NONE Respiratory: asthma Gastrointestinal: NONE Hepatic: NONE Renal: NONE Musculoskeletal: NONE Psychiatric: NONE Endocrine: gestational dm 8 months ago Blood Disorders: NONE Cancer(s): NONE 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) Exam & Diagnostic Data Last 24 Hrs of Vital Signs/I&O Vital Signs Date Time Temp Pulse Resp B/P B/P Pulse O2 O2 Flow FiO2 Mean Ox Delivery Rate 10/11 0800 99 Room Air Room Air 10/11 0800 98.3 82 24 130/70 100 Room Air Room Air 10/11 0400 99 Room Air 10/11 0100 98 Room Air 10/11 0100 97.3 90 16 140/78 98 Room Air 10/10 2208 97.6 97 20 137/71 100 Room Air 10/10 2023 98.8 123 20 157/104 99 Room Air 10/10 2020 98.4 130 135/97 Intake & Output 10/11 1600 10/11 0800 10/11 0000 Intake Total 3085 Output Total 125 Balance 2960 Intake, IV 2785 Intake, Oral 300 Number 0 Bowel Movements Output, Urine 125 Patient 254 lb Weight Weight Bed scale Measurement Method Physical Exam General Appearance: no apparent distress, obese Neck: normal inspection Respiratory: lungs clear Cardiovascular: regular rate/rhythm Gastrointestinal: soft, non-tender Extremities: normal inspection Skin: hirsutism Labs/Burke Results: Laboratory Tests 10/11 10/11 10/11 0800 0600 0500 Chemistry Sodium (137 - 145 mmol/L) Cancelled 137 Potassium (3.5 - 5.1 mmol/L) Cancelled 3.8 Chloride (98 - 107 mmol/L) Cancelled 106 Carbon Dioxide (22 - 30 mmol/L) Cancelled 19 L Anion Gap (5 - 16) Cancelled 12 BUN (7 - 17 mg/dL) Cancelled 9 Creatinine (0.5 - 1.0 mg/dL) Cancelled 0.5 Estimated GFR (>60 ml/min) > 60 Glucose (65 - 99 mg/dL) Cancelled 300 H Calcium (8.4 - 10.2 mg/dL) Cancelled 8.7 Phosphorus (2.5 - 4.5 mg/dL) Cancelled 3.4 Magnesium (1.6 - 2.3 mg/dL) Cancelled 1.5 L Total Bilirubin (0.2 - 1.3 mg/dL) Cancelled 0.6 AST (14 - 36 U/L) Cancelled 12 L ALT (9 - 52 U/L) Cancelled 16 Troponin I (< 0.11 ng/ml) 0.02 Albumin (3.5 - 5.0 g/dL) Cancelled 3.2 L Triglycerides (<150 mg/dL) 326 H Cholesterol (<200 MG/DL) 229 H LDL Cholesterol, Calc (65 - 129 mg/dL) 136 H HDL Cholesterol (40 - 60 mg/dL) 28 L Cholesterol/HDL Ratio (0.00 - 4.23 %) 8 H Hematology CBC w Diff NO MAN DIFF REQ WBC (4.8 - 10.8 /CUMM) 9.2 RBC (4.20 - 5.40 /CUMM) 4.88 Hgb (12.0 - 16.0 G/DL) 12.0 Hct (37 - 47 %) 36.9 L MCV (81.0 - 99.0 FL) 75.6 L MCH (27.0 - 31.0 PG) 24.5 L MCHC (33.0 - 37.0 G/DL) 32.5 L RDW (11.5 - 14.5 %) 16.6 H Plt Count (130 - 400 /CUMM) 218 MPV (7.4 - 10.4 FL) 9.7 Gran % (42.2 - 75.2 %) 74.3 Lymphocytes % (20.5 - 51.1 %) 17.0 L Monocytes % (1.7 - 9.3 %) 7.3 Eosinophils % (0 - 5 %) 0.9 Basophils % (0.0 - 2.0 %) 0.5 Absolute Granulocytes (1.4 - 6.5 /CUMM) 6.9 H Absolute Lymphocytes (1.2 - 3.4 /CUMM) 1.6 Absolute Monocytes (0.10 - 0.60 /CUMM) 0.7 H Absolute Eosinophils (0.0 - 0.7 /CUMM) 0.1 Absolute Basophils (0.0 - 0.2 /CUMM) 0 10/11 10/10 10/10 0200 2340 1941 Chemistry Sodium (137 - 145 mmol/L) 140 139 Potassium (3.5 - 5.1 mmol/L) 3.6 3.9 Chloride (98 - 107 mmol/L) 109 H 106 Carbon Dioxide (22 - 30 mmol/L) 16 L 14 L Anion Gap (5 - 16) 15 19 H BUN (7 - 17 mg/dL) 9 10 Creatinine (0.5 - 1.0 mg/dL) 0.5 0.5 Estimated GFR (>60 ml/min) > 60 > 60 BUN/Creatinine Ratio (7 - 25 %) 18.0 20.0 Glucose (65 - 99 mg/dL) 248 H Magnesium (1.6 - 2.3 mg/dL) 1.6 Toxicology Urine Opiates Screen (>2000 NG/ML) < 100.00 Methadone Screen (>300 NG/ML) < 40 Barbiturate Screen (>200 NG/ML) < 60 Ur Phencyclidine Scrn (>25 NG/ML) < 6.00 Amphetamines Screen (>1000 NG/ML) < 100 U Benzodiazepines Scrn (>200 NG/ML) < 85 Urine Cocaine Screen (>300 NG/ML) < 50 Urine Cannabis Screen (>50 NG/ML) > 80.00 H Urines Urine Color (YEL,AMB,STR) YEL Urine Clarity (CLEAR) CLEAR Urine pH (5.0 - 8.0) 6.0 Ur Specific [place] (1.001 - 1.035) 1.015 Urine Protein (NEG,<30 MG/DL) NEG Urine Ketones (NEG) >=80 Urine Nitrite (NEG) NEG Urine Bilirubin (NEG) NEG@ICTO Urine Urobilinogen (0.1 - 1.0 EU/dl) 0.2 Ur Leukocyte Esterase (NEG) NEG Ur Microscopic SEDIMENT EXAMINED Urine RBC (0 - 5 /HPF) 3-5 Urine WBC (0 - 2 /HPF) 5-10 H Ur Epithelial Cells (NONE,FEW) MOD H Urine Bacteria (NEG/NONE) MOD H Urine Mucus (FEW,NONE) FEW Urine Hemoglobin (NEG) SMALL H Urine Glucose (N MG/DL) >=1000 H 10/10 1830 Chemistry Sodium (137 - 145 mmol/L) 130 L Potassium (3.5 - 5.1 mmol/L) 4.3 Chloride (98 - 107 mmol/L) 97 L Carbon Dioxide (22 - 30 mmol/L) 12 L Anion Gap (5 - 16) 21 H BUN (7 - 17 mg/dL) 12 Creatinine (0.5 - 1.0 mg/dL) 0.7 Estimated GFR (>60 ml/min) > 60 BUN/Creatinine Ratio (7 - 25 %) 17.1 Glucose (65 - 99 mg/dL) 615 *H Hemoglobin A1c (4.2 - 5.8 %) 16.2 H Serum Osmolality (285 - 295 MOSM/KG) 310 H Calcium (8.4 - 10.2 mg/dL) 9.8 Total Bilirubin (0.2 - 1.3 mg/dL) 0.5 AST (14 - 36 U/L) 9 L ALT (9 - 52 U/L) 11 Alkaline Phosphatase (<127 U/L) 150 H Troponin I (< 0.11 ng/ml) < 0.01 Total Protein (6.3 - 8.2 g/dL) 8.0 Albumin (3.5 - 5.0 g/dL) 4.3 Globulin (1.9 - 4.2 gm/dL) 3.7 Albumin/Globulin Ratio (1.1 - 2.2 %) 1.2 Lipase (23 - 300 U/L) 124 Total Beta HCG (NEGATIVE) NEGATIVE Hematology CBC w Diff NO MAN DIFF REQ WBC (4.8 - 10.8 /CUMM) 13.3 H RBC (4.20 - 5.40 /CUMM) 5.61 H Hgb (12.0 - 16.0 G/DL) 13.7 Hct (37 - 47 %) 42.8 MCV (81.0 - 99.0 FL) 76.3 L MCH (27.0 - 31.0 PG) 24.4 L MCHC (33.0 - 37.0 G/DL) 31.9 L RDW (11.5 - 14.5 %) 17.1 H Plt Count (130 - 400 /CUMM) 301 MPV (7.4 - 10.4 FL) 10.1 Gran % (42.2 - 75.2 %) 81.7 H Lymphocytes % (20.5 - 51.1 %) 12.9 L Monocytes % (1.7 - 9.3 %) 4.9 Eosinophils % (0 - 5 %) 0.3 Basophils % (0.0 - 2.0 %) 0.2 Absolute Granulocytes (1.4 - 6.5 /CUMM) 10.8 H Absolute Lymphocytes (1.2 - 3.4 /CUMM) 1.7 Absolute Monocytes (0.10 - 0.60 /CUMM) 0.6 Absolute Eosinophils (0.0 - 0.7 /CUMM) 0 Absolute Basophils (0.0 - 0.2 /CUMM) 0 Toxicology Acetone Level (NEGATIVE) Cancelled POSITIVE AT 1:8 DIL Assessment/Plan Assessment/Plan 32-year-old woman with past medical history significant for gestational of diabetes mellitus asthma and GERD, recent fracture of left hand status post surgery 3 weeks ago presented with nausea /vomiting. But she was having polydipsia and polyuria for several weeks. She has had a strong family history of diabetes. She was admitted for DKA. Dx: Ketosis prone diabetes type 2 vs diabetes type 1 recommend: 1. check JARROD 65 antibody and c-peptide; 2. continue the current insulin drip for now. I will switch insulin drip to insulin sc regimen after her glucose level is less than 200---Levemir 20 units twice a day, Novolog coverage before meals and Novolog coverage at bedtime-- detail see the inpatient DM orders; 3. monitor electrolytes later today just to make sure; 4. DM education/ nutrition consult; will follow Inpatient Diabetes Orders Before Each Meal: Bolus Insulin: Novolog < 80 mg/dl: no coverage 80-100 mg/dl: 8 units 101-120 mg/dl: 8 units 121-150 mg/dl: 8 units 151-200 mg/dl: 10 units 201-250 mg/dl: 12 units 251-300 mg/dl: 14 units 301-350 mg/dl: 16 units 351-400 mg/dl: 18 units > 400 mg/dl: 20 units Bedtime: Bolus Insulin: Novolog < 80 mg/dl: no coverage 80-100 mg/dl: no coverage 101-120 mg/dl: no coverage 121-150 mg/dl: no coverage 151-200 mg/dl: no coverage 201-250 mg/dl: no coverage 251-300 mg/dl: 2 units 301-350 mg/dl: 4 units 351-400 mg/dl: 6 units > 400 mg/dl: 8 units Consult Acknowledgment - Thank you for your consult request.
--- NOTE | 2017-10-11 14:10 | PN- Student ---
Subjective Subjective: HPI: Pt is a 32 yo obese AA F with a PMHx sig for asthma, tobacco use, gestational diabetes w/out insulin or proper follow up, and a PSHx sig for c- section 8 months ago, left forearm/wrist fx repair 3 weeks ago. She presented to the ER yesterday after 1 day of progressively worsening nausea and 1 episode of vomiting. She states for the past several weeks, however, she has noticed increasing frequency of urination to about every 45 mins and increasing thirst. She has been consuming large amounts of juice and water to satisfy her thirst. She also noticed a decreased appetite and early satiety simultaneously. Pt stated she was concerned her blood sugar was actually low and attempted to obtain her mother's glucometer to check but could not find it. She decided to come in to the ER due to the development of severe nausea. She denies ever having abdominal pain, SOB, confusion, headaches. She denies any recent illnesses. Initial ED labs were significant for a BG 615, AG 21, bicarb 12, serum Osm 310, HbA1c 16.2, Na 130. She was given 2 L NS, 10 units insulin, and started on an insulin drip in the ED. She was subsequently transferred to the ICU for further management of suspected DKA. Interim: Pt resting comfortably in bed this morning in NAD. She offers no new complaints. States her nausea has almost completely resolved today. Last episode of vomiting was yesterday in the ED. She denies CP, SOB, abdominal pain, polyuria, dysuria, N/V/D, headaches, confusion, fevers,chills. Pt is currently on NS with 40 meq KCl at 100mg/hr and insulin drip at 5 units per hour. Two most recent fingerstick glucose checks at 1pm and 2pm have revealed glucose <200. PMHx: As noted in HPI. PShx: As noted in HPI. Home meds: tylenol and motrin for forearm pain. FamHx: Parents and multiple siblings with DMT2 (hx of DKA), HTN, HLD. Mother with ESRD on HD. 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 Has been smoking 1/2 pack cigarettes since age 15. Has one 8 month old son. Does not exercise. Allergies: NKDA Objective Objective: Physical Exam: Vital Signs Date Time Temp Pulse Resp B/P B/P Pulse O2 O2 Flow FiO2 Mean Ox Delivery Rate 10/11 1200 97 Room Air Room Air 10/11 0800 99 Room Air Room Air 10/11 08 98.3 82 24 130/70 100 Room Air Room Air 10/11 0400 99 Room Air 10/11 0100 98 Room Air 10/11 0100 97.3 90 16 140/78 98 Room Air 10/10 2209 97.6 97 20 137/71 100 Room Air 10/10 2023 98.8 123 20 157/104 99 Room Air 10/10 2020 98.4 130 135/97 Intake & Output 10/11 1600 10/11 0800 10/11 0000 Intake Total 3085 Output Total 125 Balance 2960 Intake, IV 2785 Intake, Oral 300 Number 0 Bowel Movements Output, Urine 125 Patient 253 lb 254 lb Weight Weight Bed scale Measurement Method General: Pleasant & conversant, obese woman, laying comfortably in bed in NAD. HEENT: NCAT, sclera nonicteric, no cervical lymphadenopathy, no tracheal deviation. Pulm: no respiratory distress, no accessory muscle use, CTAB, no crackles noted. CV: RRR, s1/s2 noted, no murmurs, no JVD, DP 2+ bilat, no lower extremity edema. Abdom: obese, soft, nontender to palpation, no masses noted. Skin: pfannenstiel incision noted, surrounded by multiple ruptured small cysts, areas of induration around incision noted, foul odor present Neuro: A&O x 3, appropriate affect and behavior, normal speech, no facial droop noted. Results Results: Laboratory Tests 10/11/17 0800: CBC w Diff NO MAN DIFF REQ, RBC 4.88, MCV 75.6 L, MCH 24.5 L, MCHC 32.5 L, RDW 16.6 H, MPV 9.7, Gran % 74.3, Lymphocytes % 17.0 L, Monocytes % 7.3, Eosinophils % 0.9, Basophils % 0.5, Absolute Granulocytes 6.9 H, Absolute Lymphocytes 1.6, Absolute Monocytes 0.7 H, Absolute Eosinophils 0.1, Absolute Basophils 0 10/11/17 0600: Sodium Cancelled, Potassium Cancelled, Chloride Cancelled, Carbon Dioxide Cancelled, Anion Gap Cancelled, BUN Cancelled, Creatinine Cancelled, Glucose Cancelled, Calcium Cancelled, Phosphorus Cancelled, Magnesium Cancelled, Total Bilirubin Cancelled, AST Cancelled, ALT Cancelled, Albumin Cancelled 10/11/17 0500: Anion Gap 12, Estimated GFR > 60, Glucose 300 H, Calcium 8.7, Phosphorus 3.4, Magnesium 1.5 L, Total Bilirubin 0.6, AST 12 L, ALT 16, Troponin I 0.02, Albumin 3.2 L, Triglycerides 326 H, Cholesterol 229 H, LDL Cholesterol, Calc 136 H, HDL Cholesterol 28 L, Cholesterol/HDL Ratio 8 H 10/11/17 0200: C-Peptide Pending 10/11/17 0200: Anion Gap 15, Estimated GFR > 60, BUN/Creatinine Ratio 18.0, Glucose 248 H, JARROD Antibody Pending 10/10/17 2340: Anion Gap 19 H, Estimated GFR > 60, BUN/Creatinine Ratio 20.0, Magnesium 1.6 10/10/17 1941: Urine Opiates Screen < 100.00, Methadone Screen < 40, Barbiturate Screen < 60, Ur Phencyclidine Scrn < 6.00, Amphetamines Screen < 100, U Benzodiazepines Scrn < 85, Urine Cocaine Screen < 50, Urine Cannabis Screen > 80.00 H, Urine Color YEL, Urine Clarity CLEAR, Urine pH 6.0, Ur Specific [place] 1.015, Urine Protein NEG, Urine Ketones >=80, Urine Nitrite NEG, Urine Bilirubin NEG@ICTO, Urine Urobilinogen 0.2, Ur Leukocyte Esterase NEG, Ur Microscopic SEDIMENT EXAMINED, Urine RBC 3-5, Urine WBC 5-10 H, Ur Epithelial Cells MOD H, Urine Bacteria MOD H, Urine Mucus FEW, Urine Hemoglobin SMALL H, Urine Glucose >=1000 H 10/10/171924: Acetone Level Cancelled 10/10/17 1830: Anion Gap 21 H, Estimated GFR > 60, BUN/Creatinine Ratio 17.1, Glucose 615 *H, Hemoglobin A1c 16.2 H, Serum Osmolality 310 H, Calcium 9.8, Total Bilirubin 0.5, AST 9 L, ALT 11, Alkaline Phosphatase 150 H, Troponin I < 0.01, Total Protein 8.0, Albumin 4.3, Globulin 3.7, Albumin/Globulin Ratio 1.2, Lipase 124, Total Beta HCG NEGATIVE, CBC w Diff NO MAN DIFF REQ, RBC 5.61 H, MCV 76.3 L, MCH 24.4 L, MCHC 31.9 L, RDW 17.1 H, MPV 10.1, Gran % 81.7 H, Lymphocytes % 12.9 L, Monocytes % 4.9, Eosinophils % 0.3, Basophils % 0.2, Absolute Granulocytes 10.8 H, Absolute Lymphocytes 1.7, Absolute Monocytes 0.6, Absolute Eosinophils 0, Absolute Basophils 0, Acetone Level POSITIVE AT 1:8 DIL Microbiology 10/11 99 UPPER RESP: Surveillance Culture - RECD 10/11 99 GI: Surveillance Culture - COLB 10/10 1834 NASOPHARYN: Influenza Virus A & B Rapid Smear - COMP CXR: Indication: Cough Examination: 2 views of the chest and examination of the ribs on the right. 2 view chest: No films to compare Findings: Low lung volumes. No obvious failure or infiltrate. There is no effusion. 5 detailed views of the right ribs do not demonstrate evidence for fracture. Impression: No evidence for fracture. No underlying pneumothorax or effusion. DICTATED BY: CARO PINO MD DATE/TIME DICTATED:11/07/141303 MINE DEPUTY:NEW DATE/TIME TRANSCRIBED:11/07/141303 Assessment/Plan Assessment: Pt is a 32 yo obese AA F with a PMH of asthma (no meds), tobacco use, gestational DM (without meds) who presented to the ED with 1 day of severe nausea and a several week hx of polydipsia and polyuria which resulted in her consuming large amounts of sweetened beverages. She denied recent viral illness, abdominal pain, dyspnea, mental status changes. While in the ED, found to have hyperglycemia to 615, an AG of 21, bicarb 12, serum osm 310, HbA1c 16.2, ketonuria. Initially treated with 2 L NS, 10 units insulin, and started on an insulin drip. Plan: Endocrine: DKA Pt with several week hx of polydipsia/polyuria and presented to ED with new onset severe nausea. Found to have an AG of 21, bicarb 12, BG 615, ketonuria, serum Osm 310, hyponatremic. Initially treated with 2 L NS, 10 units insulin, started on insulin drip. AG has closed at 12 currently, most recent fingerstick checks have been <200, bicarb improved to 19, hyponatremia resolved now. - continue q1h fingerstick glucose checks - per endo recs, may now discontinue insulin drip and switch to SC levemir 20 units BID + SS. - follow up lytes - to monitor K+, Na+, HCO3- - awaiting results of JARROD, C-peptide to pinpoint dx of DMT1 vs DMT2. - may benefit from nutrition consult. Lytes: Presented with hyponatremia, Na+ of 130. Most likely pseudohyponatremia in the setting of hyperglycemia. Corrected Na (5 x 1.6 = 8 , 130 + 8 = 138) is 138. - has resolved now with treatment of DKA. - most recent Na+ value - 137. Skin: Pt has developed multiple cysts around pfannenstiel incision. Indurations palpated, foul odor noted. - may be treated as an OP. - consider topical antbx as an IP Leukocytosis: Initial labs revealed WBC count 13.3, now resolved at 9.2. Pt continues to deny fevers/chills, pain. Most likely related to acute stress of DKA. - continue to monitor for signs of infection. - continue to monitor CBC. Housekeeping: - Continue prophylactix PPI, lovenox. - Continue nicotine patch to prevent withdrawal symx. ISSA [place]-S2 10/11/17
--- NOTE | 2017-10-11 15:50 | Transfer of Care Summary ---
Hospital Course Course Hospital Course: Reason for ICU admission: Diabetic ketoacidosis HPI: The patient is a 32-year-old female with past medical history of asthma, GERD, hypertension, gestational diabetes in January 2017 with borderline blood sugars postdelivery, never followed up with doctor and recent fracture of left hand status post surgery 3 weeks. She has strong family history of diabetes mellitus in parents and siblings. She presented to [facility] ED on 10/10 with presenting complaint of nausea vomiting and diffuse abdominal pain. She reports poor appetite increased thirst and increased urinary frequency. Interval events She presented with picture of diabetic ketoacidosis with Serum glucose 615, serum osmolality 310 anion gap of 21 bicarbonate 12 Sodium 130. She appeared to have ketosis prone type 2 diabetes mellitus. Initially she was started on insulin drip and IV of later transitioned to Levemir and NovoLog sliding scale after blood sugar hit below 200 The patient is being evaluated and treated for following conditions #Diabetic ketoacidosis She presented with picture of diabetic ketoacidosis with Serum glucose 615, serum osmolality 310 anion gap of 21 bicarbonate 12 Sodium 130. She appears to have ketosis prone type 2 diabetes mellitus. HbA1c 16.2. FSGs were 268, 309 and 280. -Currently on insulin sliding scale readjusted as per Endo, Levemir 25 units BID and metformin 500 mg BID -C-peptide and JARROD pending #High anion gap metabolic acidosis-resolved Secondary to diabetic ketoacidosis. Anion gap has closed now. -Continue to monitor #Pseudohyponatremia in setting of hypoglycemia- resolved Presented with sodium of 130 with corrected value of sodium is 138. -Continue to monitor #Leukocytosis likely reactive- resolved Patient remains afebrile with no obvious source of infection here is negative for UTI chest x-ray is negative for pneumonia. -Monitor fever and WBC curve -Monitor off antibiotics -If patient spikes fever we will consider panculture and empirical antibiotic coverage. 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
[2017-10-11 16:00] VITALS: BP 138/82
[2017-10-11 23:18] VITALS: BP 168/98
[2017-10-12 06:11] LABS: ABSOLUTE BASOPHIL COUNT 0 /CUMM (0.0-0.2); ABSOLUTE EOSINOPHIL COUNT 0.1 /CUMM (0.0-0.7); ABSOLUTE GRANULOCYTE CT 4.9 /CUMM (1.4-6.5); ABSOLUTE LYMPH COUNT 1.5 /CUMM (1.2-3.4); ABSOLUTE MONOCYTE COUNT 0.5 /CUMM (0.10-0.60); BASOPHIL % 0.4 % (0.0-2.0); EOSINOPHIL % 0.9 % (0-5); GRANULOCYTE % 69.3 % (42.2-75.2); HEMATOCRIT 35.2 % (37-47); MEAN CORPUSCULAR HGB 24.7 PG (27.0-31.0); MEAN CORPUSCULAR HGB CONC 32.3 G/DL (33.0-37.0); MEAN CORPUSCULAR VOLUME 76.5 FL (81.0-99.0); MEAN PLATELET VOLUME 9.8 FL (7.4-10.4); PLATELET COUNT 201 /CUMM (130-400); WHITE BLOOD CELL COUNT 7.1 /CUMM (4.8-10.8)
[2017-10-12 08:00] VITALS: BP 122/84
--- NOTE | 2017-10-12 08:26 | PN- Diabetes ---
Assessment/Plan Diabetes Assessment: 32-year-old woman with past medical history significant for gestational of diabetes mellitus asthma and GERD, recent fracture of left hand status post surgery 3 weeks ago presented with nausea /vomiting. But she was having polydipsia and polyuria for several weeks. She has had a strong family history of diabetes. She was admitted for DKA. Her HbA1c was 16.2%. She could have Ketosis prone diabetes type 2 vs diabetes type 1. The JARROD 65 antibody and c-peptide are still pending. She was put on Levemir 20 units twice a day, Novolog coverage before meals and Novolog coverage at bedtime. Her FSGs were 268, 309 and 280. Plan: 1. increase Levemir to 25 units twice a day; 2. start metformin 500 mg twice a day; 3. adjust Novolog coverage before meals;detail see the inpatient DM order. 4. continue the current Novolog coverage at bedtime; 5. follow JARROD 65 antibody and C-peptide; 6. nutrition consult; 7. DM education/ insulin injection teaching. will follow Inpatient Diabetes Orders Before Each Meal: Bolus Insulin: Novolog < 80 mg/dl: no coverage 80-100 mg/dl: 10 units 101-120 mg/dl: 10 units 121-150 mg/dl: 10 units 151-200 mg/dl: 12 units 201-250 mg/dl: 14 units 251-300 mg/dl: 16 units 301-350 mg/dl: 18 units 351-400 mg/dl: 20 units > 400 mg/dl: 22 units Subjective Subjective: She feels okay. But her glucose levels are not controlled. Objective Last 24 Hrs of Vital Signs/I&O Vital Signs Date Time Temp Pulse Resp B/P B/P Pulse O2 O2 Flow FiO2 Mean Ox Delivery Rate 10/12 08 97.8 88 18 122/84 100 Room Air 10/11 2318 97.9 105 20 168/98 98 Room Air 10/11 1600 99 Room Air Room Air 10/11 1600 98.0 92 20 138/82 99 Room Air Room Air 10/11 1200 97 Room Air Room Air Intake & Output 10/12 1600 10/12 0800 10/12 0000 Intake Total 240 800 Output Total Balance 240 800 Intake, IV 0 0 Intake, Oral 240 800 Number 1 0 Bowel Movements Findings Pertinent Lab/Burke Results: Laboratory Tests 10/126 1950 Chemistry Sodium (137 - 145 mmol/L) 138 134 L Potassium (3.5 - 5.1 mmol/L) 4.0 3.7 Chloride (98 - 107 mmol/L) 107 104 Carbon Dioxide (22 - 30 mmol/L) 19 L 17 L Anion Gap (5 - 16) 12 13 BUN (7 - 17 mg/dL) 7 7 Creatinine (0.5 - 1.0 mg/dL) 0.6 0.5 Estimated GFR (>60 ml/min) > 60 > 60 BUN/Creatinine Ratio (7 - 25 %) 14.0 Glucose (65 - 99 mg/dL) 286 H 283 H Calcium (8.4 - 10.2 mg/dL) 9.0 Phosphorus (2.5 - 4.5 mg/dL) 5.1 H Magnesium (1.6 - 2.3 mg/dL) 1.8 1.8 Total Bilirubin (0.2 - 1.3 mg/dL) 0.3 AST (14 - 36 U/L) 9 L ALT (9 - 52 U/L) 11 Albumin (3.5 - 5.0 g/dL) 3.0 L Hematology CBC w Diff NO MAN DIFF REQ WBC (4.8 - 10.8 /CUMM) 7.1 RBC (4.20 - 5.40 /CUMM) 4.60 Hgb (12.0 - 16.0 G/DL) 11.4 L Hct (37 - 47 %) 35.2 L MCV (81.0 - 99.0 FL) 76.5 L MCH (27.0 - 31.0 PG) 24.7 L MCHC (33.0 - 37.0 G/DL) 32.3 L RDW (11.5 - 14.5 %) 17.0 H Plt Count (130 - 400 /CUMM) 201 MPV (7.4 - 10.4 FL) 9.8 Gran % (42.2 - 75.2 %) 69.3 Lymphocytes % (20.5 - 51.1 %) 21.7 Monocytes % (1.7 - 9.3 %) 7.7 Eosinophils % (0 - 5 %) 0.9 Basophils % (0.0 - 2.0 %) 0.4 Absolute Granulocytes (1.4 - 6.5 /CUMM) 4.9 Absolute Lymphocytes (1.2 - 3.4 /CUMM) 1.5 Absolute Monocytes (0.10 - 0.60 /CUMM) 0.5 Absolute Eosinophils (0.0 - 0.7 /CUMM) 0.1 Absolute Basophils (0.0 - 0.2 /CUMM) 0
--- NOTE | 2017-10-12 08:30 | PN- Student ---
Subjective Subjective: Interim: No acute overnight events. Pt sitting comfortably in bed awaiting insulin injection so she can eat her breakfast consisting of an egg and cheese sandwich. Pt states she became very nauseous yesterday evening following her first regular meal after being NPO. The nausea has since improved but not fully resolved. She also states she is more constipated than usual and BMs are slightly painful. She denies CP, SOB, fevers, chills, polyuria, dysuria, abdominal pain. The patient's fingerstick glucose checks remain elevated. Her last three recorded are 268, 258, 309. May require insulin adjustment, as rec by endo. Objective Objective: Physical Exam: Vital Signs Date Time Temp Pulse Resp B/P B/P Pulse O2 O2 Flow FiO2 Mean Ox Delivery Rate 10/11 2318 97.9 105 20 168/98 98 Room Air 10/11 1600 99 Room Air Room Air 10/11 1600 98.0 92 20 138/82 99 Room Air Room Air 10/11 1200 97 Room Air Room Air General: NAD, sitting in bed, conversant. HEENT: NCAT, no cervical lymphadenopathy Pulm: CTAB, no wheezes, no crackles CV: RRR, s1,s2n noted, no murmurs, no JVD, no lower extremity edema. Abdomen: obese, nontender to palpation, no masses, no guarding. Neuro: A&O x3 Results Results: Laboratory Tests 10/12/17 0456: Anion Gap 12, Estimated GFR > 60, Glucose 286 H, Calcium 9.0, Phosphorus 5.1 H , Magnesium 1.8, Total Bilirubin 0.3, AST 9 L, ALT 11, Albumin 3.0 L, CBC w Diff NO MAN DIFF REQ, RBC 4.60, MCV 76.5 L, MCH 24.7 L, MCHC 32.3 L, RDW 17.0 H, MPV 9.8, Gran % 69.3, Lymphocytes % 21.7, Monocytes % 7.7, Eosinophils % 0.9 , Basophils % 0.4, Absolute Granulocytes 4.9, Absolute Lymphocytes 1.5, Absolute Monocytes 0.5, Absolute Eosinophils 0.1, Absolute Basophils 0 10/11/17 1951: Anion Gap 13, Estimated GFR > 60, BUN/Creatinine Ratio 14.0, Glucose 283 H, Magnesium 1.8 10/11/17 0800: CBC w Diff NO MAN DIFF REQ, RBC 4.88, MCV 75.6 L, MCH 24.5 L, MCHC 32.5 L, RDW 16.6 H, MPV 9.7, Gran % 74.3, Lymphocytes % 17.0 L, Monocytes % 7.3, Eosinophils % 0.9, Basophils % 0.5, Absolute Granulocytes 6.9 H, Absolute Lymphocytes 1.6, Absolute Monocytes 0.7 H, Absolute Eosinophils 0.1, Absolute Basophils 0 10/11/17 0600: Sodium Cancelled, Potassium Cancelled, Chloride Cancelled, Carbon Dioxide Cancelled, Anion Gap Cancelled, BUN Cancelled, Creatinine Cancelled, Glucose Cancelled, Calcium Cancelled, Phosphorus Cancelled, Magnesium Cancelled, Total Bilirubin Cancelled, AST Cancelled, ALT Cancelled, Albumin Cancelled 10/11/17 0500: Anion Gap 12, Estimated GFR > 60, Glucose 300 H, Calcium 8.7, Phosphorus 3.4, Magnesium 1.5 L, Total Bilirubin 0.6, AST 12 L, ALT 16, Troponin I 0.02, Albumin 3.2 L, Triglycerides 326 H, Cholesterol 229 H, LDL Cholesterol, Calc 136 H, HDL Cholesterol 28 L, Cholesterol/HDL Ratio 8 H 10/11/17 0200: C-Peptide Pending 10/11/17 0200: Anion Gap 15, Estimated GFR > 60, BUN/Creatinine Ratio 18.0, Glucose 248 H, JARROD Antibody Pending 10/10/17 2340: Anion Gap 19 H, Estimated GFR > 60, BUN/Creatinine Ratio 20.0, Magnesium 1.6 10/10/17 1941: Urine Opiates Screen < 100.00, Methadone Screen < 40, Barbiturate Screen < 60, Ur Phencyclidine Scrn < 6.00, Amphetamines Screen < 100, U Benzodiazepines Scrn < 85, Urine Cocaine Screen < 50, Urine Cannabis Screen > 80.00 H, Urine Color YEL, Urine Clarity CLEAR, Urine pH 6.0, Ur Specific [place] 1.015, Urine Protein NEG, Urine Ketones >=80, Urine Nitrite NEG, Urine Bilirubin NEG@ICTO, Urine Urobilinogen 0.2, Ur Leukocyte Esterase NEG, Ur Microscopic SEDIMENT EXAMINED, Urine RBC 3-5, Urine WBC 5-10 H, Ur Epithelial Cells MOD H, Urine Bacteria MOD H, Urine Mucus FEW, Urine Hemoglobin SMALL H, Urine Glucose >=1000 H 10/10/17 1925: Acetone Level Cancelled 10/10/17 183: Anion Gap 21 H, Estimated GFR > 60, BUN/Creatinine Ratio 17.1, Glucose 615 *H, Hemoglobin A1c 16.2 H, Serum Osmolality 310 H, Calcium 9.8, Total Bilirubin 0.5, AST 9 L, ALT 11, Alkaline Phosphatase 150 H, Troponin I < 0.01, Total Protein 8.0, Albumin 4.3, Globulin 3.7, Albumin/Globulin Ratio 1.2, Lipase 124, Total Beta HCG NEGATIVE, CBC w Diff NO MAN DIFF REQ, RBC 5.61 H, MCV 76.3 L, MCH 24.4 L, MCHC 31.9 L, RDW 17.1 H, MPV 10.1, Gran % 81.7 H, Lymphocytes % 12.9 L, Monocytes % 4.9, Eosinophils % 0.3, Basophils % 0.2, Absolute Granulocytes 10.8 H, Absolute Lymphocytes 1.7, Absolute Monocytes 0.6, Absolute Eosinophils 0, Absolute Basophils 0, Acetone Level POSITIVE AT 1:8 DIL Microbiology 10/11 99 UPPER RESP: Surveillance Culture - RECD 10/11 99 GI: Surveillance Culture - COLB 10/10 1834 NASOPHARYN: Influenza Virus A & B Rapid Smear - COMP Assessment/Plan Assessment: Pt is a 32 yo obese AA F with a PMH of asthma, tobacco use, gestational DM ( without meds) who presented to the ED with 1 day of severe nausea and a several week hx of polydipsia and polyuria which resulted in her consuming large amounts of sweetened beverages. She denied recent viral illness, abdominal pain, dyspnea , mental status changes. While in the ED, found to have hyperglycemia to 615, an AG of 21, bicarb 12, serum osm 310, HbA1c 16.2, ketonuria. Initially treated with 2 L NS, 10 units insulin, and started on an insulin drip. Transferred to ICU for further management of DKA. Plan: Endocrine: DKA Pt with several week hx of polydipsia/polyuria and presented to ED with new onset severe nausea. Found to have an AG of 21, bicarb 12, BG 615, ketonuria, serum Osm 310, hyponatremic. Initially treated with 2 L NS, 10 units insulin, started on insulin drip. AG has closed at 12 currently, bicarb currently 19, however, fingersticks continue to be elevated >250. - continue q1h fingerstick glucose checks - per endo recs, increase levemir to 25 units SC BID, continue SS novolog, start metformin 500mg daily today. - follow up lytes - to monitor K+, Na+, HCO3- - awaiting results of JARROD, C-peptide to pinpoint dx of DMT1 vs DMT2. - may benefit from nutrition consult. Lytes: Presented with hyponatremia, Na+ of 130. Most likely pseudohyponatremia in the setting of hyperglycemia. Corrected Na (5 x 1.6 = 8 , 130 + 8 = 138) is 138. - has resolved now with treatment of DKA. - most recent Na+ value - 138. Integument: Pt has developed multiple cysts around pfannenstiel incision. Indurations palpated, foul odor noted. - will rec treatment by OP OBGYN/PCP Heme: Leukocytosis. Initial labs revealed WBC count 13.3, now resolved, currently 7.1. Pt continues to deny fevers/chills, pain. Most likely related to acute stress of DKA. - continue to monitor for signs of infection. - continue to daily CBC. GI: Pt endorses return of nausea since yesterday evening, which is better today & some constipation. - if QTc interval WNLs will restart Zofran prn. - start docusate sodium daily. Tobacco use: - continue nicotine patch to prevent withdrawal. Housekeeping: - Continue prophylactic PPI, lovenox. ISSA Oconnor-S2 10/12/17
--- NOTE | 2017-10-12 09:02 | PN- Housestaff ---
Subjective Follow-up For: DKA Tele-Events Since Last Visit: No overnight acute events Subjective: Patient seen and examined. Sitting comfortably in the bed. Overall status is much improved. Complains of constipation and nausea. Denies fever shortness of breath, chest pain, palpitations, urinary symptoms Review of Systems Constitutional: Reports: see HPI. Objective Last 24 Hrs of Vital Signs/I&O Vital Signs Date Time Temp Pulse Resp B/P B/P Pulse O2 O2 Flow FiO2 Mean Ox Delivery Rate 10/12 0800 97.8 88 18 122/84 100 Room Air 10/11 2318 97.9 105 20 168/98 98 Room Air 10/11 1600 99 Room Air Room Air 10/11 1600 98.0 92 20 138/82 99 Room Air Room Air 10/11 1200 97 Room Air Room Air Intake & Output 10/12 1600 10/12 0800 10/12 0000 Intake Total 240 800 Output Total Balance 240 800 Intake, IV 0 0 Intake, Oral 240 800 Number 1 0 Bowel Movements Physical Exam General Appearance: Alert, Oriented X3, Cooperative, No Acute Distress Skin: No Rashes HEENT: Atraumatic Cardiovascular: Normal S1, Normal S2, No Murmurs Lungs: Clear to Auscultation Abdomen: Normal Bowel Sounds, Soft Neurological: Normal Speech Extremities: No Edema Current Medications: Current Medications Sig/Keivn Start time Last Medication Dose Route Stop Time Status Admin Enoxaparin Sodium 40 MG DAILY 10/11 1000 AC 10/11 SC 0920 Insulin Aspart 0 TIDAC/HS 10/11 1700 AC 10/12 SC 0805 Insulin Detemir 25 UNITS BID 10/12 1000 AC SC Insulin Detemir 20 UNITS BID 10/11 1429 RI 10/11 SC 2116 Insulin Human Regular 100 UNIT Q24H 10/10 2045 DC Sodium Chloride 100 ML IV Magnesium Sulfate 1 GM Q2H 10/11 0730 RI 10/11 Dextrose/Water 100 ML IV 10/11 1129 1050 Metformin HCl 500 MG 0800,1700 10/12 0800 AC PO Nicotine 21 MG DAILY 10/11 1717 AC 10/11 TOP 1957 Omeprazole 20 MG DAILY AC 10/12 0700 AC 10/12 PO 0804 Ondansetron HCl 4 MG ONCE ONE 10/12 0230 DC 10/12 IV 10/12 0231 0229 Oxycodone/ 1 TAB Q6P PRN 10/11 0400 AC Acetaminophen PO Pantoprazole Sodium 40 MG DAILY 10/11 1000 DC 10/11 IV 0920 Polyethylene Glycol 17 GM DAILY 10/12 1000 AC PO Potassium Chloride 40 MEQ Q10H 10/11 0730 DC 10/11 Sodium Chloride 1,000 ML IV 0720 Senna 187 MG AT BEDTIME 10/12 2200 AC PO Last 24 Hrs of Lab/Burke Results Last 24 Hrs of Labs/Mics: Laboratory Tests 10/12/17 0456: Anion Gap 12, Estimated GFR > 60, Glucose 286 H, Calcium 9.0, Phosphorus 5.1 H , Magnesium 1.8, Total Bilirubin 0.3, AST 9 L, ALT 11, Albumin 3.0 L, CBC w Diff NO MAN DIFF REQ, RBC 4.60, MCV 76.5 L, MCH 24.7 L, MCHC 32.3 L, RDW 17.0 H, MPV 9.8, Gran % 69.3, Lymphocytes % 21.7, Monocytes % 7.7, Eosinophils % 0.9 , Basophils % 0.4, Absolute Granulocytes 4.9, Absolute Lymphocytes 1.5, Absolute Monocytes 0.5, Absolute Eosinophils 0.1, Absolute Basophils 0 10/11/171950: Anion Gap 13, Estimated GFR > 60, BUN/Creatinine Ratio 14.0, Glucose 283 H, Magnesium 1.8 Assessment/Plan Assessment: The patient is a 32-year-old female with past medical history of asthma, GERD, hypertension, gestational diabetes in January 2017 with borderline blood sugars postdelivery, never followed up with doctor and recent fracture of left hand status post surgery 3 weeks. She has strong family history of diabetes mellitus in parents and siblings. She presented to [place] ED on 10/10 with presenting complaint of nausea vomiting and diffuse abdominal pain. She reports poor appetite increased thirst and increased urinary frequency. She presented with picture of diabetic ketoacidosis with Serum glucose 615, serum osmolality 310 anion gap of 21 bicarbonate 12 Sodium 130. She appeared to have ketosis prone type 2 diabetes mellitus. Initially she was started on insulin drip and IV of later transitioned to Levemir and NovoLog sliding scale after blood sugar hit below 200 The patient is being evaluated and treated for following conditions #Diabetic ketoacidosis She presented with picture of diabetic ketoacidosis with Serum glucose 615, serum osmolality 310 anion gap of 21 bicarbonate 12 Sodium 130. She appears to have ketosis prone type 2 diabetes mellitus. HbA1c 16.2. er FSGs were 268, 309 and 280. -Currently on insulin sliding scale readjusted as per Endo, Levemir 25 units BID and metformin 500 mg BID -Endocrinology on board -C-peptide and JARROD pending #High anion gap metabolic acidosis-resolved Secondary to diabetic ketoacidosis. Anion gap has closed now. -Continue to monitor #Pseudohyponatremia in setting of hypoglycemia- resolved Presented with sodium of 130 with corrected value of sodium is 138. -Continue to monitor #Leukocytosis likely reactive- resolved Patient remains afebrile with no obvious source of infection here is negative for UTI chest x-ray is negative for pneumonia. -Monitor fever and WBC curve -Monitor off antibiotics -If patient spikes fever we will consider panculture and empirical antibiotic coverage. #Hyperlipidemia TAG 326, Chol 229, LDL 136 [place] 26, total cholesterol 229, LDL 136, HDL 28 -Lifestyle modification counseling -Continue to monitor -Consider adding moderate intensity statin #Mild drop in H/H likely dilutional -Continue to monitor #History of GERD Protonix #History of smoking Smoking cessation counseling nicotine patch #Historyof asthma [facility] Problem List: 1. DKA (diabetic ketoacidoses) Pain Ratin Pain Location: n/a Pain Goal: Pain 4 or less Pain Plan: prn Tomorrow's Labs & Rationales: cbc
[2017-10-12 16:00] VITALS: BP 128/80
--- NOTE | 2017-10-12 19:22 | Event Note ---
Event Note Event Note: 7:20pm patient bringing food from outside to eat. FS 254 will cover her with 14 units per ISS and recheck in 2 hrs
[2017-10-13] VITALS: BP 127/76
[2017-10-13 05:23] LABS: ABSOLUTE BASOPHIL COUNT 0 /CUMM (0.0-0.2); ABSOLUTE EOSINOPHIL COUNT 0.1 /CUMM (0.0-0.7); ABSOLUTE GRANULOCYTE CT 6.3 /CUMM (1.4-6.5); ABSOLUTE LYMPH COUNT 1.8 /CUMM (1.2-3.4); ABSOLUTE MONOCYTE COUNT 0.6 /CUMM (0.10-0.60); BASOPHIL % 0.5 % (0.0-2.0); EOSINOPHIL % 0.9 % (0-5); HEMATOCRIT 36.4 % (37-47); MEAN CORPUSCULAR HGB 24.6 PG (27.0-31.0); MEAN CORPUSCULAR HGB CONC 32.2 G/DL (33.0-37.0); MEAN CORPUSCULAR VOLUME 76.7 FL (81.0-99.0); MEAN PLATELET VOLUME 9.3 FL (7.4-10.4); PLATELET COUNT 212 /CUMM (130-400); RBC DISTRIBUTION WIDTH 17.1 % (11.5-14.5); RED BLOOD CELL CT 4.75 /CUMM (4.20-5.40); WHITE BLOOD CELL COUNT 8.8 /CUMM (4.8-10.8)
--- NOTE | 2017-10-13 07:11 | PN- Housestaff ---
See Addendum Subjective Follow-up For: DKA Subjective: Patient seen and examined. Resting comfortably in the bed. On stable to be discharged home with f/u with endo Review of Systems Constitutional: Reports: see HPI. Objective Last 24 Hrs of Vital Signs/I&O Vital Signs Date Time Temp Pulse Resp B/P B/P Pulse O2 O2 Flow FiO2 Mean Ox Delivery Rate 10/13 0800 98.0 74 20 120/62 98 Room Air 10/13 0000 97 Room Air 10/13 0000 98.0 76 20 127/76 97 Room Air 10/12 1600 98.5 76 20 128/80 99 Room Air Intake & Output 10/13 1600 10/13 0800 10/13 0000 Intake Total 200 500 Output Total 600 Balance 200 -100 Intake, Oral 200 500 Number 1 Bowel Movements Output, Urine 600 Physical Exam General Appearance: Alert, Oriented X3, Cooperative Cardiovascular: Normal S1, Normal S2 Lungs: Clear to Auscultation Abdomen: Normal Bowel Sounds, Soft Current Medications: Current Medications Sig/Kevin Start time Last Medication Dose Route Stop Time Status Admin Acetaminophen 650 MG Q4P PRN 10/12 1645 AC 10/12 PO 1643 Acetaminophen 650 MG ONCE ONE 10/12 1115 DC 10/12 PO 10/12 1116 1118 Atorvastatin Calcium 20 MG 1700 10/12 1700 AC 10/12 PO 1630 Enoxaparin Sodium 40 MG DAILY 10/11 1000 AC 10/12 SC 1028 Insulin Aspart 14 UNITS ONCE ONE 10/12 1930 DC 10/12 SC 10/12 1931 1920 Insulin Aspart 6 UNITS ONCE ONE 10/12 1915 CAN SC 10/12 1916 Insulin Aspart 0 TIDAC/HS 10/11 1700 10/13 SC 0814 Insulin Detemir 30 UNITS BID 10/13 1000 [facility] Insulin Detemir 25 UNITS BID 10/12 1000 [place] 10/12 SC 2144 Insulin Human Regular 16 UNITS .STK-MED ONE 10/12 1256 DC IV 10/12 1257 Metformin HCl 1,000 MG 0800,0 10/13 0812 10/13 PO 0816 Metformin HCl 500 MG 0800,1700 10/12 0800 DC 10/12 PO 1630 Nicotine 21 MG DAILY 10/11 1717 10/11 TOP 1957 Omeprazole 20 MG DAILY AC 10/12 0700 AC 10/13 PO 0612 Ondansetron HCl 4 MG .STK-MED ONE 10/12 1256 DC IV 10/12 1257 Oxycodone/ 1 TAB Q6P PRN 10/11 0400 DC Acetaminophen PO Polyethylene Glycol 17 GM DAILY 10/12 1000 AC 10/12 PO 1028 Potassium Chloride 40 MEQ ONCE ONE 10/13 0645 DC 10/13 PO 10/13 0646 0650 Senna 187 MG AT BEDTIME 10/12 2200 AC 10/12 PO 1635 Last 24 Hrs of Lab/Burke Results Last 24 Hrs of Labs/Mics: Laboratory Tests 10/13/17 0500: Anion Gap 13, Estimated GFR > 60, BUN/Creatinine Ratio 13.3, Phosphorus 4.8 H, CBC w Diff NO MAN DIFF REQ, RBC 4.75, MCV 76.7 L, MCH 24.6 L, MCHC 32.2 L, RDW 17.1 H, MPV 9.3, Gran % 71.0, Lymphocytes % 20.7, Monocytes % 6.9, Eosinophils % 0.9, Basophils % 0.5, Absolute Granulocytes 6.3, Absolute Lymphocytes 1.8, Absolute Monocytes 0.6, Absolute Eosinophils 0.1, Absolute Basophils 0 Assessment/Plan Assessment: The patient is a 32-year-old female with past medical history of asthma, GERD, hypertension, gestational diabetes in January 2017 with borderline blood sugars postdelivery, never followed up with doctor and recent fracture of left hand status post surgery 3 weeks. She has strong family history of diabetes mellitus in parents and siblings. She presented to [place] ED on 10/10 with presenting complaint of nausea vomiting and diffuse abdominal pain. She also reported poor appetite increased thirst and increased urinary frequency. Vitals stable other than mild tachycardia. Labs: WBC 13.3, Na 130, bicarb 12, AG 21, BUN 12, creat 0.7, glucose 615, S. Osm 310, Alk phos 150, trop neg, lipase 124. Beta HCG neg. UA clear with glucose > 1000. Utox positive for cannabis. Acetone positive. EKG: sinus tachycardia, Qtc 468, TWI in lead III and inferior Q waves (old). The patient was admitted to ICU for management of following conditions, later downgraded to general medicine floor but satyed in ICU because of unavailability of beds and is being discharged today from ICU. #Diabetic ketoacidosis- resolved She presented with picture of diabetic ketoacidosis with Serum glucose 615, serum osmolality 310 anion gap of 21 bicarbonate 12 Sodium 130. She appears to have ketosis prone type 2 diabetes mellitus vs type 1 DM HbA1c 16.2. Initially she was started on insulin drip and later transitioned to Levemir and NovoLog sliding scale. She has also been started on metformin -Currently on insulin sliding scale readjusted as per Endo, Levemir 30 units BID and metformin 1000 mg BID -C-peptide and JARROD pending to be followed up by PCP and endocrinology #High anion gap metabolic acidosis-resolved Secondary to diabetic ketoacidosis. Anion gap has closed #Pseudohyponatremia in setting of hypoglycemia- resolved Presented with sodium of 130 with corrected value of sodium is 138. #Leukocytosis likely reactive- resolved Patient remains afebrile with no obvious source of infection here is negative for UTI chest x-ray is negative for pneumonia. She was monitored off antibiotics #Hyperlipidemia TAG 326, Chol 229, LDL 136, HDL 28 --Consider adding moderate intensity statin along with lifestyle modification counseling #Mild drop in H/H- likely dilutional #Patient has been provided referrals for endocrinology and PCP along with nutrition for outpatient follow-up She was full code during her stay,/maintained on consistent carbohydrate diet/ DVT prophylaxis achieved with Lovenox Problem List: 1. DKA (diabetic ketoacidoses) Pain Ratin Pain Location: n/a Pain Goal: Pain 4 or less Pain Plan: prn Tomorrow's Labs & Rationales: nonw
[2017-10-13 08:00] VITALS: BP 120/62
--- NOTE | 2017-10-13 08:27 | PN- Student ---
Subjective Subjective: Interim: No acute overnight events. Pt resting comfortably in bed. No new complaints. Constipation and nausea have resolved today. Pt slightly upset she did not receive the correct amount of insulin yesterday. She had a FGS of 157 at 5pm yesterday and was only given 4 units of insulin instead of the recommended 12 by endocrinology. The following FGS at 9pm yesterday was 206 and she received 14 units of insulin according to the SS. Most recent FGS today at 8am - 276. Objective Objective: Vital Signs Date Time Temp Pulse Resp B/P B/P Pulse O2 O2 Flow FiO2 Mean Ox Delivery Rate 10/13 0000 97 Room Air 10/13 0000 98.0 76 20 127/76 97 Room Air 10/12 1600 98.5 76 20 128/80 99 Room Air Intake & Output 10/13 1600 10/13 0800 10/13 0000 Intake Total 200 500 Output Total 600 Balance 200 -100 Intake, Oral 200 500 Number 1 Bowel Movements Output, Urine 600 General: NAD, lying comfortably in bed. HEENT: NCAT, EOMi, nonicteric sclera bilat Pulm: No resp distress, no accessory muscle use, lungs CTAB CV: RRR, s1/s2 noted, no JVD, no lower extremity edema. Abdomen: Obese, soft, nontender to palpation, no masses, no guarding. MSK: repair of left radial fx, no deformities. Neuro: A&O x 3, no sensory or motor deficits of lower extremities. Results Results: Laboratory Tests 10/13/17 0500: Anion Gap 13, Estimated GFR > 60, BUN/Creatinine Ratio 13.3, Phosphorus 4.8 H, CBC w Diff NO MAN DIFF REQ, RBC 4.75, MCV 76.7 L, MCH 24.6 L, MCHC 32.2 L, RDW 17.1 H, MPV 9.3, Gran % 71.0, Lymphocytes % 20.7, Monocytes % 6.9, Eosinophils % 0.9, Basophils % 0.5, Absolute Granulocytes 6.3, Absolute Lymphocytes 1.8, Absolute Monocytes 0.6, Absolute Eosinophils 0.1, Absolute Basophils 0 10/12/17 0456: Anion Gap 12, Estimated GFR > 60, Glucose 286 H, Calcium 9.0, Phosphorus 5.1 H , Magnesium 1.8, Total Bilirubin 0.3, AST 9 L, ALT 11, Albumin 3.0 L, CBC w Diff NO MAN DIFF REQ, RBC 4.60, MCV 76.5 L, MCH 24.7 L, MCHC 32.3 L, RDW 17.0 H, MPV 9.8, Gran % 69.3, Lymphocytes % 21.7, Monocytes % 7.7, Eosinophils % 0.9 , Basophils % 0.4, Absolute Granulocytes 4.9, Absolute Lymphocytes 1.5, Absolute Monocytes 0.5, Absolute Eosinophils 0.1, Absolute Basophils 0 10/11/17 1951: Anion Gap 13, Estimated GFR > 60, BUN/Creatinine Ratio 14.0, Glucose 283 H, Magnesium 1.8 10/11/17 0800: CBC w Diff NO MAN DIFF REQ, RBC 4.88, MCV 75.6 L, MCH 24.5 L, MCHC 32.5 L, RDW 16.6 H, MPV 9.7, Gran % 74.3, Lymphocytes % 17.0 L, Monocytes % 7.3, Eosinophils % 0.9, Basophils % 0.5, Absolute Granulocytes 6.9 H, Absolute Lymphocytes 1.6, Absolute Monocytes 0.7 H, Absolute Eosinophils 0.1, Absolute Basophils 0 10/11/17 0600: Sodium Cancelled, Potassium Cancelled, Chloride Cancelled, Carbon Dioxide Cancelled, Anion Gap Cancelled, BUN Cancelled, Creatinine Cancelled, Glucose Cancelled, Calcium Cancelled, Phosphorus Cancelled, Magnesium Cancelled, Total Bilirubin Cancelled, AST Cancelled, ALT Cancelled, Albumin Cancelled 10/11/17 0500: Anion Gap 12, Estimated GFR > 60, Glucose 300 H, Calcium 8.7, Phosphorus 3.4, Magnesium 1.5 L, Total Bilirubin 0.6, AST 12 L, ALT 16, Troponin I 0.02, Albumin 3.2 L, Triglycerides 326 H, Cholesterol 229 H, LDL Cholesterol, Calc 136 H, HDL Cholesterol 28 L, Cholesterol/HDL Ratio 8 H 10/11/17 0200: C-Peptide Pending 10/11/17 0200: Anion Gap 15, Estimated GFR > 60, BUN/Creatinine Ratio 18.0, Glucose 248 H, JARROD Antibody Pending 10/10/17 2340: Anion Gap 19 H, Estimated GFR > 60, BUN/Creatinine Ratio 20.0, Magnesium 1.6 02/20/18 1941: Urine Opiates Screen < 100.00, Methadone Screen < 40, Barbiturate Screen < 60, Ur Phencyclidine Scrn < 6.00, Amphetamines Screen < 100, U Benzodiazepines Scrn < 85, Urine Cocaine Screen < 50, Urine Cannabis Screen > 80.00 H, Urine Color YEL, Urine Clarity CLEAR, Urine pH 6.0, Ur Specific [place] 1.015, Urine Protein NEG, Urine Ketones >=80, Urine Nitrite NEG, Urine Bilirubin NEG@ICTO, Urine Urobilinogen 0.2, Ur Leukocyte Esterase NEG, Ur Microscopic SEDIMENT EXAMINED, Urine RBC 3-5, Urine WBC 5-10 H, Ur Epithelial Cells MOD H, Urine Bacteria MOD H, Urine Mucus FEW, Urine Hemoglobin SMALL H, Urine Glucose >=1000 H 10/10/171924: Acetone Level Cancelled 10/10/171829: Anion Gap 21 H, Estimated GFR > 60, BUN/Creatinine Ratio 17.1, Glucose 615 *H, Hemoglobin A1c 16.2 H, Serum Osmolality 310 H, Calcium 9.8, Total Bilirubin 0.5, AST 9 L, ALT 11, Alkaline Phosphatase 150 H, Troponin I < 0.01, Total Protein 8.0, Albumin 4.3, Globulin 3.7, Albumin/Globulin Ratio 1.2, Lipase 124, Total Beta HCG NEGATIVE, CBC w Diff NO MAN DIFF REQ, RBC 5.61 H, MCV 76.3 L, MCH 24.4 L, MCHC 31.9 L, RDW 17.1 H, MPV 10.1, Gran % 81.7 H, Lymphocytes % 12.9 L, Monocytes % 4.9, Eosinophils % 0.3, Basophils % 0.2, Absolute Granulocytes 10.8 H, Absolute Lymphocytes 1.7, Absolute Monocytes 0.6, Absolute Eosinophils 0, Absolute Basophils 0, Acetone Level POSITIVE AT 1:8 DIL Microbiology 10/11 99 UPPER RESP: Surveillance Culture - COMP 10/11 99 GI: Surveillance Culture - CAN Cancelled: SPECIMEN NOT RECEIVED IN LABORATORY 10/10 1834 NASOPHARYN: Influenza Virus A & B Rapid Smear - COMP Assessment/Plan Assessment: Pt is a 32 yo obese AA F with a PMH of asthma, tobacco use, gestational DM ( without meds) who presented to the ED with 1 day of severe nausea and a several week hx of polydipsia and polyuria which resulted in her consuming large amounts of sweetened beverages. She denied recent viral illness, abdominal pain, dyspnea , mental status changes. While in the ED, found to have hyperglycemia to 615, an AG of 21, bicarb 12, serum osm 310, HbA1c 16.2, ketonuria. Initially treated with 2 L NS, 10 units insulin, and started on an insulin drip. Transferred to ICU for further management of DKA. Plan: Endocrine: DKA Pt with several week hx of polydipsia/polyuria and presented to ED with new onset severe nausea. Found to have an AG of 21, bicarb 12, BG 615, ketonuria, serum Osm 310, hyponatremic. Initially treated with 2 L NS, 10 units insulin, started on insulin drip. AG has closed , bicarb currently 21. - continue q1h fingerstick glucose checks - Increase levemir to 30 units SC BID, continue following SS novolog as outlined by endocrinology, start metformin 1000mg daily. Endo recs appreciated. - follow up lytes - to monitor K+, Na+, HCO3- - awaiting results of JARROD, C-peptide to pinpoint dx of DMT1 vs DMT2. - pt will require close follow up as an OP. Currently does not have PCP. Lytes: Presented with hyponatremia, Na+ of 130. Most likely pseudohyponatremia in the setting of hyperglycemia. Corrected Na (5 x 1.6 = 8 , 130 + 8 = 138) is 138. - has resolved now with treatment of DKA. - most recent Na+ value - 137. Heme: Leukocytosis. Initial labs revealed WBC count 13.3, now resolved, currently 8.8. Pt continues to deny fevers/chills, pain. Most likely related to acute stress of DKA. - continue to monitor for signs of infection. - continue to daily CBC. GI: Nausea and constipation resolved today. - continue Senna prn. HLD: Pt noted to have elevated triglycerides and LDL, as well as, HDL of 28. - pt may benefit from buttermaker continuous churn statin therapy. - pt advised to begin an exercise regimen to aid in increasing HDL and benefit from its cardioprotective effects. - may need nutrition f/u as an OP for HLD and DM. Tobacco use: - continue nicotine patch to prevent withdrawal. Integument: Pt has developed multiple cysts around pfannenstiel incision. Indurations palpated, foul odor noted. - will rec treatment by OP OBGYN/PCP Housekeeping: - Continue prophylactic PPI, lovenox. ISSA Oconnor-S2 10/13/17
--- NOTE | 2017-10-13 09:50 | Discharge Summary ---
Visit Information Visit Dates Admission Date: 10/10/17 Discharge Date: 10/13/17 Hospital Course Course Attending Physician: Sarah Gibson MD Primary Care Physician: Patient Has No Primary Care Dr Consulting Request: Consulting Specialty: Endocrinology Consulting Physician: Hospital Course: The patient is a 32-year-old female with past medical history of asthma, GERD, hypertension, gestational diabetes in January 2017 with borderline blood sugars postdelivery, never followed up with doctor and recent fracture of left hand status post surgery 3 weeks. She has strong family history of diabetes mellitus in parents and siblings. She presented to [place] ED on 10/10 with presenting complaint of nausea vomiting and diffuse abdominal pain. She also reported poor appetite increased thirst and increased urinary frequency. Vitals stable other than mild tachycardia. Labs: WBC 13.3, Na 130, bicarb 12, AG 21, BUN 12, creat 0.7, glucose 615, S. Osm 310, Alk phos 150, trop neg, lipase 124. Beta HCG neg. UA clear with glucose > 1000. Utox positive for cannabis. Acetone positive. EKG: sinus tachycardia, Qtc 468, TWI in lead III and inferior Q waves (old). The patient was admitted to ICU for management of following conditions, later downgraded to general medicine floor but satyed in ICU because of unavailability of beds and is being discharged today from ICU. #Diabetic ketoacidosis- resolved She presented with picture of diabetic ketoacidosis with Serum glucose 615, serum osmolality 310 anion gap of 21 bicarbonate 12 Sodium 130. She appears to have ketosis prone type 2 diabetes mellitus vs type 1 DM HbA1c 16.2. Initially she was started on insulin drip and later transitioned to Levemir and NovoLog sliding scale. She has also been started on metformin -Currently on insulin sliding scale readjusted as per Endo, Levemir 30 units BID and metformin 1000 mg BID -C-peptide and JARRDO pending to be followed up by PCP and endocrinology #High anion gap metabolic acidosis-resolved Secondary to diabetic ketoacidosis. Anion gap has closed #Pseudohyponatremia in setting of hypoglycemia- resolved Presented with sodium of 130 with corrected value of sodium is 138. #Leukocytosis likely reactive- resolved Patient remains afebrile with no obvious source of infection here is negative for UTI chest x-ray is negative for pneumonia. She was monitored off antibiotics #Hyperlipidemia TAG 326, Chol 229, LDL 136, HDL 28 -Consider adding moderate intensity statin along with lifestyle modification counseling #Mild drop in H/H- likely dilutional #Patient has been provided referrals for endocrinology and PCP along with nutrition for outpatient follow-up She was full code during her stay,/maintained on consistent carbohydrate diet/ DVT prophylaxis achieved with Lovenox Allergies: Coded Allergies: No Known Allergies (09/15/17) Disposition Summary Disposition Principal Diagnosis: DKA Additional Diagnosis: High anion gap metabolic acidosis Discharge Disposition: home or self care Discharge Instructions General Discharge Information Code Status: Full Code Patient's Diet: consistent carbohydrate Patient's Activity: As tolerated Follow-Up Instructions/Appts: Please follow-up with PCP within one week of discharge Please follow-up with endocrinology Please follow-up with nutrition for diabetes education Medications at Discharge Discharge Medications: Stop taking the following medications: Ibuprofen (Ibuprofen) 800 MG TABLET ORAL 4XDAILY as needed for PAIN/INFLAMMATION Continue taking these medications: Oxycodone HCl/Acetaminophen (Percocet 5-325 MG Tablet) 5 MG-325 MG TABLET 2 Tablet ORAL Q6-8H as needed for PAIN Comments: DID NOT RECEIVE WHILE IN HOSPITAL Start taking the following new medications: Insulin Aspart (Novolog) 100 UNIT/ML VIAL 0 Units Inject into fatty tissue SEE SLIDING SCALE Qty = 30 Refills = 2 Instructions: > 80 mg / dl start hypoglytcemia protocol 80-150 mg 10 units 151-200 mg/dl 12 Units 201-250 14 u 251-300 16 u 301-350 18 u 351-400 20 u > 400 MG /DL 22 u Niight time Scale 251-300 2U 301-350 4U 351-400 6U >400 8U Metformin HCl (Metformin HCl) 1,000 MG TABLET 1 Milligram ORAL 0800,1700 Qty = 30 Refills = 1 Comments: Last Taken:10/18/17 Time: 8:15 AM Insulin Detemir (Levemir) 100 UNIT/ML VIAL 30 Units Inject into fatty tissue TWICE DAILY Days = 30 Refills = 2 Comments: Last Taken:10/18/17 Time: 10:40 AM Lancets (Accu-Chek) 1 EACH EACH 0 ON SKIN 3 TIMES DAILY BEFORE MEALS Qty = 60 Refills = 1 Blood Sugar Diagnostic (Glucose Test Strip) 1 EACH STRIP 0 ON SKIN SEE INSTRUCTIONS Qty = 30 Refills = 2 Copies To: Naomi Salgado MD; Edgardo ACKERMAN,[place]
[2017-10-13] MEDS ORDERED: METFORMIN HCL1000 M1 PO (09:51)
[2017-10-13] MEDS ORDERED: ACCU-CHEK1 EACH EXT (09:51)
[2017-10-13] MEDS ORDERED: LEVEMIR100 UNIT/1 SC (09:51)
[2017-10-13] MEDS ORDERED: NOVOLOG100 UNIT/2 SC ×2 (09:51→10:00)
--- NOTE | 2017-10-13 09:54 | Patient Discharge Instructions ---
Discharge Instructions General Discharge Information You were seen/treated for: DIABETIC KETOACIDOSIS Special Instructions: 1) Please follow up with Dr. Reynoso within one week 2) please follow up with your PCP within one week 3) Please follow-up with nutrition for diabetes education Diet Continue normal diet: No Recommended Diet: Diabetic Additional DIET Information: low calory Activity Full Activity/No Limits: Yes Activity Self Limited: Yes Acute Coronary Syndrome Inclusion Criteria At DC or during hospital stay patient has or had the following: ACS DIAGNOSIS No Discharge Core Measures Meds if any: Prescribed or Continued at Discharge Meds if any: NOT Prescribed or Continued at Discharge Congestive Heart Failure Inclusion Criteria At DC or during hospital stay patient has or had the following: CHF DIAGNOSIS No Discharge Core Measures Meds if any: Prescribed or Continued at Discharge Meds if any: NOT Prescribed or Continued at Discharge Cerebrovascular accident Inclusion Criteria At DC or during hospital stay patient has or had the following: CVA/TIA Diagnosis No Discharge Core Measures Meds if any: Prescribed or Continued at Discharge Meds if any: NOT Prescribed or Continued at Discharge Venous thromboembolism Inclusion Criteria VTE Diagnosis No VTE Type NONE VTE Confirmed by (Test) NONE Discharge Core Measures - Per Current guidelines, there needs to be overlap - treatment for the first 5 days of Warfarin therapy. - If discharged on Warfarin prior to 5 days of - overlap therapy, the patient will need to be - assessed for post discharge needs including - *Post discharge parental anticoagulation - *Warfarin and/or parental anticoagulation education - *Follow up date to check INR post discharge At least 5 days overlap therapy as Inpatient No Meds if any: Prescribed or Continued at Discharge Note: Overlap Therapy is Warfarin and Anticoagulant Meds if any: NOT Prescribed or Continued at Discharge
[2017-10-13] MEDS ORDERED: GLUCOSE TEST S1 EACH EXT (10:35)
--- NOTE | 2017-10-13 10:38 | PN- Diabetes ---
Assessment/Plan Diabetes Assessment: 32-year-old woman with past medical history significant for gestational of diabetes mellitus asthma and GERD, recent fracture of left hand status post surgery 3 weeks ago presented with nausea /vomiting. But she was having polydipsia and polyuria for several weeks. She has had a strong family history of diabetes. She was admitted for DKA. Her HbA1c was 16.2%. She could have Ketosis prone diabetes type 2 vs diabetes type 1. The JARROD 65 antibody and c-peptide are still pending. She was put on Levemir 25 units twice a day, metformin 500 mg twice aday, Novolog coverage before meals and Novolog coverage at bedtime. Her FSGs were 280 , 257, 230, 157, 254 and 206. Plan: 1. increase Levemir to 30 units twice a day; 2. increase metformin to 1000 mg twice a day; 3.continue Novolog coverage before meals;detail see the inpatient DM order. 4. continue the current Novolog coverage at bedtime; 5. follow JARROD 65 antibody and C-peptide; 6. F/U in office after discharge. Inpatient Diabetes Orders Before Each Meal: Bolus Insulin: Novolog < 80 mg/dl: no coverage 80-100 mg/dl: 10 units 101-120 mg/dl: 10 units 121-150 mg/dl: 10 units 151-200 mg/dl: 12 units 201-250 mg/dl: 14 units 251-300 mg/dl: 16 units 301-350 mg/dl: 18 units 351-400 mg/dl: 20 units > 400 mg/dl: 22 units Subjective Subjective: She feels well. Objective Last 24 Hrs of Vital Signs/I&O Vital Signs Date Time Temp Pulse Resp B/P B/P Pulse O2 O2 Flow FiO2 Mean Ox Delivery Rate 10/13 08 98.0 74 20 120/62 98 Room Air 10/13 0000 97 Room Air 10/13 0000 98.0 76 20 127/76 97 Room Air 10/12 1600 98.5 76 20 128/80 99 Room Air Intake & Output 10/13 1600 10/13 0800 10/13 0000 Intake Total 200 500 Output Total 600 Balance 200 -100 Intake, Oral 200 500 Number 1 Bowel Movements Output, Urine 600 Findings Pertinent Lab/Burke Results: Laboratory Tests 10/13 0500 Chemistry Sodium (137 - 145 mmol/L) 137 Potassium (3.5 - 5.1 mmol/L) 3.7 Chloride (98 - 107 mmol/L) 104 Carbon Dioxide (22 - 30 mmol/L) 21 L Anion Gap (5 - 16) 13 BUN (7 - 17 mg/dL) 8 Creatinine (0.5 - 1.0 mg/dL) 0.6 Estimated GFR (>60 ml/min) > 60 BUN/Creatinine Ratio (7 - 25 %) 13.3 Phosphorus (2.5 - 4.5 mg/dL) 4.8 H Hematology CBC w Diff NO MAN DIFF REQ WBC (4.8 - 10.8 /CUMM) 8.8 RBC (4.20 - 5.40 /CUMM) 4.75 Hgb (12.0 - 16.0 G/DL) 11.7 L Hct (37 - 47 %) 36.4 L MCV (81.0 - 99.0 FL) 76.7 L MCH (27.0 - 31.0 PG) 24.6 L MCHC (33.0 - 37.0 G/DL) 32.2 L RDW (11.5 - 14.5 %) 17.1 H Plt Count (130 - 400 /CUMM) 212 MPV (7.4 - 10.4 FL) 9.3 Gran % (42.2 - 75.2 %) 71.0 Lymphocytes % (20.5 - 51.1 %) 20.7 Monocytes % (1.7 - 9.3 %) 6.9 Eosinophils % (0 - 5 %) 0.9 Basophils % (0.0 - 2.0 %) 0.5 Absolute Granulocytes (1.4 - 6.5 /CUMM) 6.3 Absolute Lymphocytes (1.2 - 3.4 /CUMM) 1.8 Absolute Monocytes (0.10 - 0.60 /CUMM) 0.6 Absolute Eosinophils (0.0 - 0.7 /CUMM) 0.1 Absolute Basophils (0.0 - 0.2 /CUMM) 0
[2017-10-14] MEDS ORDERED: SKELAXIN800 M1 PO (19:02)
[2017-10-14] MEDS ORDERED: TYLENOL WITH C1 EACH PO (19:02)
== END 2017-10-13 11:19 | DRG 420 ==
LOC: ERH 18:15 → ERHI 21:42 → CRI 21:42 → ENRESERV 23:47 → CRI 10-11 01:04
PROVIDERS: Internal Medicine; Internal Medicine Infectious Disease; Physician Assistant Medical
DX: E11.10 Type 2 diabetes mellitus with ketoacidosis without coma (principal); E78.5 Hyperlipidemia, unspecified; Z68.41 Body mass index [BMI] 40.0-44.9, adult; J45.909 Unspecified asthma, uncomplicated; K21.9 Gastro-esophageal reflux disease without esophagitis; E66.9 Obesity, unspecified; E87.1 Hypo-osmolality and hyponatremia; L72.9 Follicular cyst of the skin and subcutaneous tissue, unspecified; S62.92XD Unspecified fracture of left hand, subsequent encounter for fracture with routine healing; X58.XXXD Exposure to other specified factors, subsequent encounter; D72.829 Elevated white blood cell count, unspecified; F17.200 Nicotine dependence, unspecified, uncomplicated
CPT/HCPCS: 83519; CCU; ERO; 36415; 80307; 81001; 82436; 87804; 87804-59; 93005; 93010; 96374; 96375; 99291; J1650; J1815; J2405; J3101; J7042

== ENCOUNTER 2017-10-14 17:12 | Emergency (ER) | payer OTHER ==
[~2017-10-14] VITALS: Ht 167.6 cm; Wt 116.1 kg
[~2017-10-14 17:12] MED LIST changes: +ACCU-CHEK1 EACH EXT; +GLUCOSE TEST S1 EACH EXT; +LEVEMIR100 UNIT/1 SC; +METFORMIN HCL1000 M1 PO; +NOVOLOG100 UNIT/2 SC
--- NOTE | 2017-10-14 18:33 | ED NECK/BACK PAIN COMPLAINT ---
History of Present Illness General Chief Complaint: Lower Extremity Injury Stated Complaint: PT IS HAVING VERY BAD BACK PAIN Source: patient Exam Limitations: no limitations Vital Signs & Intake/Output Vital Signs & Intake/Output Vital Signs Date Time Temp Pulse Resp B/P B/P Pulse O2 O2 Flow FiO2 Mean Ox Delivery Rate 10/14 1908 97.4 101 18 133/79 99 Room Air 10/14 1719 97.2 121 18 141/86 99 Room Air Allergies Coded Allergies: No Known Allergies (09/15/17) Reconcile Medications Blood Sugar Diagnostic (Glucose Test Strip) 1 EACH STRIP 0 EXT SEE ADMIN CRITERIA Diabetis Insulin Aspart (Novolog) 100 UNIT/ML VIAL 0 UNITS SC SEE SLIDING SCALE Diabetis > 80 mg / dl start hypoglytcemia protocol 80-150 mg 10 units 151-200 mg/dl 12 Units 201-250 14 u 251-300 16 u 301-350 18 u 351-400 20 u > 400 MG /DL 22 u Niight time Scale 251-300 2U 301-350 4U 351-400 6U >400 8U Insulin Detemir (Levemir) 100 UNIT/ML VIAL 30 UNITS SC BID Diabetis Lancets (Accu-Chek) 1 EACH EACH 0 EXT TIDAC bLOOD SUGAR Metaxalone (Skelaxin) 800 MG TABLET 1 TAB PO TID PRN MUSCLE RELAXATION Metformin HCl 1,000 MG TABLET 1 MG PO 0800,1700 Diabetis Oxycodone HCl/Acetaminophen (Percocet 5-325 MG Tablet) 5 MG-325 MG TABLET 2 TAB PO Q6-8H PRN PAIN (Reported) Tylenol With Codeine (Tylenol With Codeine #3 Tablet) 300 MG-30 MG TABLET 1 TAB PO BIDP PRN PAIN Triage Note: PT TO ER C/C 04/30 LOW BACK PAIN RADIATING TO LEFT BUTTOCK X 1 DAY. DENIES INJURY OR TRAUMA. DENIES PAIN/BURNING ON URINATION. Triage Nurses Notes Reviewed? yes Onset: Gradual Duration: constant Timing: recent history Quality/Severity: severe Location: paraspinous muscles : No Patient currently breastfeeds: No HPI: Patient is a 32-year-old female with a past medical history of asthma GERD hypertension and gestational diabetes who was recently admitted and discharged from the ICU yesterday for concerns of DKA patient states that when she left the emergency room she had a gradual onset of left-sided lateral lumbar spine muscular pain where she states that she is unrelieved with Tylenol. Patient denies any fever chills abdominal pain nausea vomiting extremity weakness paresthesia pain hematuria dysuria Patient states the pain is localized to the left lateral region of her lumbar spine (Foster Perez) Past History Travel History Traveled to [place] past 21 day No Medical History Any Pertinent Medical History? see below for history Neurological: NONE EENT: NONE Cardiovascular: hyperlipidemia Respiratory: asthma Gastrointestinal: NONE Hepatic: NONE Renal: NONE Musculoskeletal: NONE Psychiatric: NONE Endocrine: diabetic ketoacidosis, gestational dm 8 months Blood Disorders: NONE Cancer(s): NONE PRODUCE SPECIALIST/Reproductive: History of MRSA: No History of VRE: No History of CDIFF: No Surgical History Surgical History: , wrist reduction PYLONIDAL CYST REMOVAL AT AGE 13 Psychosocial History Who do you live with Mother What is your primary language Kyrgyz Tobacco Use: Current Daily Use Daily Tobacco Use Amount/Type: => 5 Cigarettes daily Family History Family History, If Any: Relation not specified for: FHx: atrial fibrillation FHx: diabetes mellitus Hx Contributory? No (Foster Perez) Review of Systems Review of Systems Constitutional: Reports: no symptoms. Eyes: Reports: no symptoms. Ears, Nose, Throat, Mouth: Reports: no symptoms. Respiratory: Reports: no symptoms. Cardiovascular: Reports: no symptoms. Gastrointestinal/Abdominal: Reports: no symptoms. Musculoskeletal: Reports: see HPI, back pain. Skin: Reports: no symptoms. Neurological/Psychological: Reports: no symptoms. All Other Systems: Reviewed and Negative (Foster Perez) Physical Exam Physical Exam General Appearance: no apparent distress, alert, awake, obese Head: atraumatic Eyes: Bilateral: normal appearance. Ears, Nose, Throat, Mouth: hearing grossly normal Neck: normal inspection, supple Respiratory: normal breath sounds, chest non-tender, no respiratory distress Cardiovascular: regular rate/rhythm Gastrointestinal: normal bowel sounds, soft, non-tender Extremities: non-tender Skin: intact, normal color, warm/dry Comments: Lumbar spine no central spinous tenderness bilateral paralumbar muscular point tenderness decreased active range of motion noted Bilateral lower extremities myotomes dermatomes intact Core Measures CVA/TIA Diagnosis: No (Foster Perez) Progress Differential Diagnosis: aortic dissection, C spine injury, carotid dissection, cauda equina syn, herniated disc, myofascial strain, pyelo/UTI, sciatica, spinal cord inj, thoracic outlet syn, T/L spine injury, ureterolithiasis Plan of Care: Orders Procedure Date/time Status FingerStick- Glucose 10/14 1832 Active Due to patient's recent admission of DKA she does admit that prior to arrival she did eat hotdogs where her blood sugar was 254 upon discharge patient has no concerns of DKA Patient has reproducible superficial point tenderness of paralumbar muscular region which I suspect patient have lumbar spine strain differential diagnoses include discitis spinal abscess Patient had normal steady gait on discharge patient's bilateral lower extremity' s were neurovascularly intact again nontender abdomen (Foster Perez) Departure Departure Disposition: HOME OR SELF CARE Condition: Stable Clinical Impression Primary Impression: Low back strain Referrals: Patient Has No Primary Care Dr (PCP/Family) Additional Instructions: As discussed begin the prescription Tylenol with Codeine for pain and meloxicam for muscle relaxation begin icing the area 20 minutes every 2 hours, if no better next week follow-up with your establish new primary care doctor, if symptoms worsen return to emergency room prescription is waiting at [facility] Departure Forms: Customer Survey General Discharge Information Prescriptions: Current Visit Scripts Tylenol With Codeine (Tylenol With Codeine #3 Tablet) 1 TAB PO BIDP PRN PAIN #8 TAB Metaxalone (Skelaxin) 1 TAB PO TID PRN MUSCLE RELAXATION #12 TAB (Foster Perez) PA/CAUSTIC LOADER Co-Sign Statement Statement: ED Attending supervision documentation- [X] I saw and evaluated the patient. I have also reviewed all the pertinent lab results and diagnostic results. I agree with the findings and the plan of care as documented in the PA's/CAUSTIC LOADER's documentation. [] I have reviewed the ED Record and agree with the PA's/CAUSTIC LOADER's documentation. [] Additions or exceptions (if any) to the PAs/CAUSTIC LOADER's note and plan are summarized below: [] (Alvin Marino DO)
[2017-10-14] MEDS ORDERED: TYLENOL WITH C1 EACH PO (19:02)
[2017-10-14] MEDS ORDERED: SKELAXIN800 M1 PO (19:02)
[2017-10-14 19:08] VITALS: BP 133/79
== END 2017-10-14 19:09 ==
LOC: ERH 17:12
DX: S39.012A Strain of muscle, fascia and tendon of lower back, initial encounter (principal); X58.XXXA Exposure to other specified factors, initial encounter; Y92.9 Unspecified place or not applicable; Y93.9 Activity, unspecified